=== PATIENT | female | born 1970 | race Caucasian/White ===

== ENCOUNTER 2020-12-17 22:12 | Inpatient (IN) | payer MEDICAID, MEDICARE ==
[~2020-12-17] VITALS: Ht 167.7 cm; Wt 81.8 kg
--- NOTE | 2020-12-17 22:34 | ED Lower Extremity ---
General Chief Complaint: Lower Extremity Stated Complaint: POST L KNEE SURGERY/PAIN/INFECTION Source: patient (VERY DIFFICULT HISTORIAN--APPEARS TO BE UNDER THE INFLUENCE OF SOME SUBSTANCE/S) History of Present Illness Date Seen by Provider: Dec 17, 2020 Time Seen by Provider: 22:20 Initial Comments PT ARRIVES VIA POV FROM HOME, WITH SISTER AMBULATES IN WITH A WHEELED WALKER PT STATES SHE HAD LEFT KNEE REPLACEMENT BY DR. MEDINA AT [facility] ON 12/05/20 AND WAS DISMISSED 12/07/20 HAS NOT ATTEMPTED TO CONTACT HER SURGEON AT ANY TIME STATES "IT'S INFECTED" CLAIMS SHE HAS BEEN HAVING ALL OF THESE SYMPTOMS SINCE THE DAY SHE WAS DISMISSED FROM THE HOSPITAL, AND ARE NO DIFFERENT TONIGHT, STATES "I DIDN'T HAVE A RIDE TO THE HOSPITAL" , BUT HAD NOT ATTEMPTED TO CONTACT ANY FAMILY MEMBERS REGARDING THIS PROBLEM PT LIVES ALONE SISTER THAT IS WITH HER TONIGHT, STATES SHE LAST SAW HER OVER A WEEK AGO, RIGHT AFTER SHE GOT HOME FROM THE HOSPITAL PT IS SUPPOSED TO BE HAVING HOME PHYSICAL THERAPY, BUT CANNOT STATE WHEN OR IF SHE HAS BEEN HAVING IT--STATES SHE HAS IT "EVERY 2 MONTHS" PT C/O DIZZINESS C/O "OOZING BLOOD" FROM INCISION C/O "BLOOD PRESSURE IS WAY LOW"--STATES BP HAS BEEN 70/56 CANNOT STATE ANY OTHER SYMPTOMS AT THIS TIME, BUT STATES THEY HAVE ALL BEEN GOING ON SINCE THE DAY SHE WAS DISMISSED FROM THE HOSPITAL PT IS UNAWARE IF SHE HAS HAD FEVER PT STATES NO CHANGE IN CHRONIC COUGH AND SHORTNESS OF BREATH--CONTINUES TO SMOKE > 1 PPD PT ALSO DRINKS AT LEAST 4 BEERS A DAY, AND CLAIMS THAT IS HOW MUCH SHE HAS HAD TONIGHT PT STATES SHE LAST TOOK PAIN MEDICATION 4 HOURS AGO PT STATES SHE HAS BEEN TAKING HER REGULAR MEDICATION WELL, INCLUDING BLOOD PRESSURE MEDICATION. HOWEVER, PT IS CONFUSED TO TIME, AND DAY OF WEEK/DAY OF MONTH PT IS FULLY VACCINATED AGAINST COVID-19--SECOND MODERNA VACCINE IN MAY 2020 SISTER BROUGHT ALL OF PT'S MEDICATIONS WITH HER--PT HAS A SIGNIFICANT AMOUNT OF EXTRA MEDICATIONS--APPEARS THAT SHE HAS NOT BEEN TAKING ANY OF HER MEDICATIONS, ALL BOTTLES ARE NEARLY FULL AND MANY WERE FILLED MONTHS AGO. PCP: PT STATES "NONE" --WAS GOING TO [facility], BUT STATES SHE "GOT INTO IT" WITH THE LINE FIXER AND PT HAS NOT BEEN BACK PT MOVED HERE LESS THAN A YEAR AGO FROM [facility] SURGEON: DR. MEDINA, ANNA MARIA Allergies and Home Medications Allergies Coded Allergies: No Known Drug Allergies (Unverified , 12/17/20) Patient Home Medication List Home Medication List Reviewed: Yes Review of Systems Constitutional: see HPI Respiratory: see HPI Musculoskeletal: see HPI, other (SWELLING TO LEFT KNEE AND LOWER LEG ) Skin: other (DRAINAGE FROM WOUND) Psychiatric/Neurological: See HPI; Denies Headache, Denies Numbness, Denies Paresthesia Past Cvjmtap-Dewqqw-Urcxur Hx Patient Social History Tobacco Use?: Yes Tobacco type used: Cigarettes Smoking Status: Current Everyday Smoker Substance use?: Yes ("TRIED MARIJUANA" IN PAST) Alcohol Use?: Yes Alcohol type: Beer Alcohol Frequency: Daily Past Medical History Surgery/Hospitalization HX: LEFT KNEE REPLACEMENT 12/05/[address] MEDINA AT [facility] HYSTERECTOMY/BILATERAL SALPINGO-OOPHORECTOMY CERVICAL SPINE SURGERY Surgeries: Yes Hysterectomy, Oophorectomy, Orthopedic Respiratory: Yes COPD Cardiac: Yes Hypertension Neurological: No GENERAL SURGERY PHYSICIAN ASSISTANT History: Hysterectomy, Menopausal Genitourinary: No Gastrointestinal: Yes Gastroesophageal Reflux Musculoskeletal: Yes (CHRONIC NECK PAIN-S/P C-SPINE SURGERY; LEFT TOTAL KNEE REPLACEMENT) Arthritis HEENT: No Psychosocial: No Integumentary: No Blood Disorders: No Family Medical History SOCIAL HISTORY: -SMOKES > 1 PPD -ETOH--"4 BEERS" A DAY -DRUGS--"TRIED MARIJUANA" Physical Exam Vital Signs Vital Signs - First Documented 12/17/20 22:20 Temp 35.8 Pulse 83 Resp 17 B/P (MAP) 80/49 (59) Pulse Ox 98 O2 Delivery Room Air Capillary Refill : Height, Weight, BMI Height: '" Weight: lbs. oz. kg; BMI Method: General Appearance: WD/WN, no apparent distress, other (AMBULATES IN WITH WHEELED WALKER, SPEECH IS SLIGHTLY SLURRED/THICK TONGUED--PT APPEARS TO BE UNDER THE INFLUENCE OF SOME SUBSTANCE/S. PT REEKS OF SMOKE AND ALCOHOL. ) HEENT: PERRL/EOMI Neck: normal inspection Cardiovascular: regular rate, rhythm, no murmur Respiratory: normal breath sounds, no respiratory distress, no accessory muscle use Gastrointestinal: non tender, soft Back: no CVA tenderness Hips: bilateral hip normal inspection Legs: right leg normal inspection; left leg other (HAS SIGNIFICANT SWELLING FROM LEFT KNEE DOWN TO FOOT--3-4+; FOOT/TOES PINK AND WARM. LIMITED ROM AT KNEE; INCISION TO LEFT KNEE IS INTACT, BUT IS OOZING BLOOD FROM DISTAL ASPECT. HAS [place] LD ERYTHEMA SURROUNDING THE INCISION. NO STREAKS. LIMITED ROM AT KNEE, BUT HAS FULL ROM DISTALLY, AND SENSORY/VASCULAR ARE INTACT. ) Knees: right knee normal inspection; left knee other ( ABOVE) Ankles: left ankle other ( ABOVE) Feet: left foot other ( ABOVE) Neurologic/Tendon: normal sensation, normal motor functions Neurologic/Psychiatric: no motor/sensory deficits, alert, other (CONFUSED TO TIME/DATE, AND SOMEWHAT CONFUSED TO SITUATION; DOES NOT KNOW WHO PRESIDENT IS. SPEECH IS SLIGHTLY SLURRED/THICK-TONGUED AND APPEARS TO BE UNDER THE INFLUENCE OF SOME SUBSTANCE/S) Skin: normal color, warm/dry, other (LEFT KNEE INCISION NOTED ABOVE. ) Progress/Results/Core Measures Results/Orders Lab Results Laboratory Tests Test 12/17/20 22:25 12/17/20 22:39 Range/Units White Blood Count 5.5 4.3-11.0 10^3/uL Red Blood Count 2.88 L 3.80-5.11 10^6/uL Hemoglobin 10.6 L 11.5-16.0 g/dL Hematocrit 29 L 35-52 % Mean Corpuscular Volume 100 H 80-99 fL Mean Corpuscular Hemoglobin 37 H 25-34 pg Mean Corpuscular Hemoglobin Concent 37 H 32-36 g/dL Red Cell Distribution Width 12.3 10.0-14.5 % Platelet Count 289 130-400 10^3/uL Mean Platelet Volume 10.0 9.0-12.2 fL Immature Granulocyte % (Auto) 2 % Neutrophils (%) (Auto) 59 42-75 % Lymphocytes (%) (Auto) 27 12-44 % Monocytes (%) (Auto) 11 0-12 % Eosinophils (%) (Auto) 2 0-10 % Basophils (%) (Auto) 1 0-10 % Neutrophils # (Auto) 3.2 1.8-7.8 10^3/uL Lymphocytes # (Auto) 1.5 1.0-4.0 10^3/uL Monocytes # (Auto) 0.6 0.0-1.0 10^3/uL Eosinophils # (Auto) 0.1 0.0-0.3 10^3/uL Basophils # (Auto) 0.0 0.0-0.1 10^3/uL Immature Granulocyte # (Auto) 0.1 0.0-0.1 10^3/uL Erythrocyte Sedimentation Rate 19 0-20 MM/HR Prothrombin Time 12.8 12.2-14.7 SEC INR Comment 0.9 0.8-1.4 Activated Partial Thromboplast Time 27 24-35 SEC Sodium Level 122 *L 135-145 MMOL/L Potassium Level 3.1 L 3.6-5.0 MMOL/L Chloride Level 84 L 98-107 MMOL/L Carbon Dioxide Level 19 L 21-32 MMOL/L Anion Gap 19 H 5-14 MMOL/L Blood Urea Nitrogen 12 7-18 MG/DL Creatinine 0.75 0.60-1.30 MG/DL Estimat Glomerular Filtration Rate 82 BUN/Creatinine Ratio 16 Glucose Level 70 70-105 MG/DL Lactic Acid Level 1.29 0.50-2.00 MMOL/L Calcium Level 8.4 L 8.5-10.1 MG/DL Corrected Calcium 8.9 8.5-10.1 MG/DL Magnesium Level 1.8 1.6-2.4 MG/DL Total Bilirubin 0.8 0.1-1.0 MG/DL Aspartate Amino Transf (AST/SGOT) 50 H 5-34 U/L Alanine Aminotransferase (ALT/SGPT) 20 0-55 U/L Alkaline Phosphatase 116 40-136 U/L Total Creatine Kinase 82 29-168 U/L Creatine Kinase MB 8.4 *H <6.6 NG/ML Myoglobin 126.2 H 10.0-92.0 NG/ML C-Reactive Protein High Sensitivity 0.60 H 0.00-0.50 MG/DL Total Protein 6.2 L 6.4-8.2 GM/DL Albumin 3.4 3.2-4.5 GM/DL Amylase Level 27 25-125 U/L Lipase 18 8-78 U/L Procalcitonin 0.11 H <0.10 NG/ML Acetaminophen Level < 10 L 10-30 UG/ML Serum Alcohol 364 *H <10 MG/DL Urine Color YELLOW Urine Clarity CLEAR Urine pH 6.0 5-9 Urine Specific Prather 1.010 L 1.016-1.022 Urine Protein NEGATIVE NEGATIVE Urine Glucose (UA) NEGATIVE NEGATIVE Urine Ketones NEGATIVE NEGATIVE Urine Nitrite NEGATIVE NEGATIVE Urine Bilirubin NEGATIVE NEGATIVE Urine Urobilinogen 0.2 < = 1.0 MG/DL Urine Leukocyte Esterase NEGATIVE NEGATIVE Urine RBC (Auto) NEGATIVE NEGATIVE Urine RBC NONE /HPF Urine WBC RARE /HPF Urine Squamous Epithelial Cells 0-2 /HPF Urine Crystals NONE /LPF Urine Bacteria TRACE /HPF Urine Casts NONE /LPF Urine Mucus NEGATIVE /LPF Urine Culture Indicated CULTURE PENDING SARS-CoV-2 RNA (RT-PCR) Not Detected Not Detecte My Orders Orders - RICARDO TRAN DO Ed Iv/Invasive Line Start (12/17/20 22:29) Monitor-Rhythm Ecg Trace Only (12/17/20:) Straight Cath For Spec.-Adult (12/17/20:) Chest 1 View, Ap/Pa Only (12/17/20:) Knee, Left, 3 Views (12/17/20:29) Acetaminophen (12/17/20:) Alcohol (12/17/20:) Amylase (12/17/20:29) Cbc With Automated Diff (12/17/20:) Comprehensive Metabolic Panel (12/17/20:) Creatine Kinase (12/17/20:) Creatine Kinase Mb (12/17/20:) Hs C Reactive Protein (12/17/20:) Lactic Acid Analyzer (12/17/20 22:29) Lipase (12/17/20:) Magnesium (12/17/20:) Procalcitonin (Pct) (12/17/20:) Protime With Inr (12/17/20:) Partial Thromboplastin Time (12/17/20 22:29) Ua Culture If Indicated (12/17/20:) Blood Culture (12/17/20:29) Wound Culture (12/17/20:) Erythrocyte Sedimentation Rate (12/17/20 22:29) Myoglobin Serum (12/17/20 22:29) Ed Iv/Invasive Line Start (12/17/20 22:34) Lactated Ringers (Lr 1000 Ml Iv Solution (12/17/20 22:45) Ns Iv 1000 Ml (Sodium Chloride 0.9%) (12/17/20 22:45) Covid 19 Inhouse Test (12/17/20 22:34) Urine Culture (12/17/20 22:34) Ed Iv/Invasive Line Start (12/17/20 22:34) Vital Signs Adult Sepsis Patie Q15M (12/17/20 22:34) Remove Rings In Anticipation O (12/17/20 22:34) Catheter(Urinary) Insert & Ass 03,15 (12/17/20 22:38) Catheter(Urinary) Insert & Ass 03,15 (12/17/20 23:02) Ekg Tracing (12/17/20 23:06) Piperacillin Sodium/Tazobactam (Zosyn Vi (12/17/20 23:15) Vancomycin Injection (Vancomycin Injecti (12/17/20 23:15) Ed Iv/Invasive Line Start (12/17/20 23:15) Ns Iv 1000 Ml (Sodium Chloride 0.9%) (12/17/20 23:15) Norepinephrine 8 Mg/250 Ml (Norepinephri (12/18/20 00:30) Medications Given in ED Current Medications Medications Dose Ordered Sig/Merari Route Start Time Stop Time Status Last Admin Dose Admin Lactated Ringer's 1,000 ml @ 0 mls/hr Q0M ONCE IV 12/17/20 22:45 12/17/20 22:46 DC 12/17/20 22:43 0 MLS/HR Piperacillin Sod/ Tazobactam Sod 4.5 gm/Sodium Chloride 100 ml @ 200 mls/hr ONCE ONCE IV 12/17/20 23:15 12/17/20 23:44 DC 12/17/20 23:59 200 MLS/HR Vital Signs/I&O 12/17/20 12/18/20 22:20 00:50 Temp 35.8 Pulse 83 85 Resp 17 B/P (MAP) 80/49 (59) 72/49 Pulse Ox 98 O2 Delivery Room Air 12/18/20 00:00 Intake Total 1000 ml Balance 1000 ml Progress Progress Note : Progress Note SEPSIS PROTOCOL INITIATED GIVEN IV FLUIDS--PT STILL HYPOTENSIVE IN 70'S SYSTOLIC, AFTER 3RD LITER OF FLUIDS. LEVOPHED DRIP STARTED, AND BP >100 SYSTOLIC AT TIME OF ADMIT GIVEN IV ANTIBIOTICS NO DETERIORATION IN PT'S CONDITION DURING ER STAY FOCUS EXAM DONE AT 0005--DX; SEPTIC SHOCK; SOURCE; BONE/JOINT-POST SURGICAL; H-RRR L-CTA SKIN--GOOD CAP REFILL GIVEN IV FLUIDS GIVEN IV ANTIBIOTICS LACTIC ACID DRAWN BLOOD CULTURES DRAWN VASOPRESSORS GIVEN Initial ECG Impression Date: Dec 17, 2020 Initial ECG Impression Time: 23:10 Initial ECG Rate: 72 Initial ECG Rhythm: Normal Sinus Initial ECG Impression: Nonspecific Changes Diagnostic Imaging Comments CXR--NO ACUTE PROCESS, PENDING RADIOLOGIST REVIEW LEFT KNEE--SOFT TISSUE SWELLING, HARDWARE IN PLACE, PENDING RADIOLOGIST REVIEW Reviewed: Reviewed by Me Critical Care Note Critical Care Total Time (minutes) 30 Departure Communication (Admissions) 2242--CALLED [facility], NO ANSWER 9--CALLED [facility], AT FULL CAPACITY/ON DIVERSION. 231--SPOKE WITH DR. FREGOSO, HOSPITALIST, SHE ADVISES TO CONTACT ORTHOPEDIC SURGEON FLIGHT OPERATIONS INSPECTOR, AND IF HE IS AGREEABLE WITH KEEPING PT HERE, SHE WILL ADMIT. 231--CALLED DR. GAMINO, MESSAGE LEFT ON CELL PHONE. [phone]--CALLED DR. GAMINO, MESSAGE LEFT ON CELL PHONE [phone]--CALLED DR. GAMINO, MESSAGE LEFT ON CELL PHONE 0012--SPOKE WITH DR. FREGOSO, SHE ADVISES THAT PT WILL NEED TO BE TRANSFERRED IF ORTHOPEDIC SURGEON IS NOT AGREEABLE TO ADMIT. 0017--MULTIPLE SLIDE OPERATOR ATTEMPTING TO CONTACT DR. GAMINO, MESSAGE LEFT ON CELL PHONE [phone]--CALLED [facility], THEY WILL CALL BACK 0030--[facility] CALLED BACK, WANTING FACE SHEET FAXED, WHICH WAS DONE. 010--SPOKE WITH DR. WILL, INSTRUMENT MAINTENANCE SUPERVISOR, ADVISES THAT HE WILL NOT ACCEPT PT WITHOUT CENTRAL LINE 010--CALLED DR. GRIGGS FOR CENTRAL LINE PLACEMENT. HE ADVISES TO ATTEMPT TO CONTACT DR. GAMINO AGAIN, AND Serge VARGHESE 0114--SPOKE WITH CHELLE VARGHESE, HE ADVISES TO ATTEMPT TO CONTACT DR. GAMINO AGAIN 011--CALLED DR. GAMINO, AND HE IS AGREEABLE TO KEEPING PT HERE, ADMITTING TO HOSPITALIST AND HE WILL SEE PT IN CONSULT. 0125--SPOKE WITH DR. FREGOSO, AND INFORMED HER OF THE ABOVE, AND SHE ACCEPTS PT FOR ADMIT 0126--REPORT TO E-ICU PHYSICIAN. NO ADDITIONAL RECOMMENDATIONS 012--SPOKE WITH DR. GRIGGS, HE WILL PLACE CENTRAL LINE IN THE MORNING, PT HAS 3 PERIPHERAL IV'S AT THIS TIME. Impression Primary Impression: Septic shock Additional Impressions: POST OP WOUND INFECTION OF LEFT KNEE Status post left knee replacement COPD WITH CONTINUED SMOKING ACUTE ALCOHOL INTOXICATION IN ACTIVE ALCOHOLIC SEVERE HYPONATREMIA Disposition: ADMITTED INPATIENT Condition: Improved Admissions Decision to Admit Reason: Admit from ER (General) Decision to Admit/Date: Dec 18, 2020 Time/Decision to Admit Time: 01:25 Departure-Patient Inst. Referrals: NO,LOCAL PHYSICIAN (PCP/Family) Primary Care Physician RICARDO TRAN DO Dec 17, 2020 22:34
[2020-12-17 22:39] LABS: BASOPHILS % (AUTO) 1 % (0-10); EOSINOPHILS # (AUTO) 0.1 10^3/uL (0.0-0.3); EOSINOPHILS % (AUTO) 2 % (0-10); HEMATOCRIT 29 % (35-52); HEMOGLOBIN 10.6 g/dL (11.5-16.0); LYMPHOCYTES # (AUTO) 1.5 10^3/uL (1.0-4.0); LYMPHOCYTES % (AUTO) 27 % (12-44); MEAN CORPUSCULAR HEMOGLOBIN 37 pg (25-34); MEAN CORPUSCULAR HGB CONC 37 g/dL (32-36); MEAN CORPUSCULAR VOLUME 100 fL (80-99); MONOCYTES # (AUTO) 0.6 10^3/uL (0.0-1.0); MONOCYTES % (AUTO) 11 % (0-12); NEUTROPHILS # (AUTO) 3.2 10^3/uL (1.8-7.8); NEUTROPHILS % (AUTO) 59 % (42-75); PLATELET COUNT 289 10^3/uL (130-400); WHITE BLOOD COUNT 5.5 10^3/uL (4.3-11.0)
[2020-12-17] MEDS ORDERED: LACTATED RINGERS 1,000 ML IV ONE (22:45)
[2020-12-17] MEDS ORDERED: NS IV 1000 ML 1,000 ML IV SCH ×2 (22:45→23:15)
[2020-12-17 22:48] LABS: CHLORIDE 84 MMOL/L (98-107); POTASSIUM 3.1 MMOL/L (3.6-5.0)
[2020-12-17 22:49] LABS: ALBUMIN 3.4 GM/DL (3.2-4.5)
[2020-12-17 22:50] LABS: AMYLASE 27 U/L (25-125); CALCIUM 8.4 MG/DL (8.5-10.1)
[2020-12-17 22:51] LABS: GLUCOSE 70 MG/DL (70-105); TOTAL PROTEIN 6.2 GM/DL (6.4-8.2)
[2020-12-17 22:52] LABS: CARBON DIOXIDE 19 MMOL/L (21-32); INR 0.9 (0.8-1.4); PROTHROMBIN TIME PATIENT 12.8 SEC (12.2-14.7)
[2020-12-17 22:53] LABS: BILIRUBIN,TOTAL 0.8 MG/DL (0.1-1.0)
[2020-12-17 22:55] LABS: ALKALINE PHOSPHATASE 116 U/L (40-136); CREATININE SERUM 0.75 MG/DL (0.60-1.30); GFR ESTIMATED 82
[2020-12-17 22:56] LABS: ACETAMINOPHEN < 10 UG/ML (10-30); BUN/CREATININE RATIO 16
[2020-12-17 22:57] LABS: MAGNESIUM 1.8 MG/DL (1.6-2.4)
[2020-12-17 22:58] LABS: ALANINE AMINOTRANSFERASE 20 U/L (0-55)
[2020-12-17 22:58] LABS: BILIRUBIN,URINE NEGATIVE (NEGATIVE); CLARITY,URINE CLEAR; COLOR,URINE YELLOW; GLUCOSE, URINE (UA) NEGATIVE (NEGATIVE); KETONES,URINE NEGATIVE (NEGATIVE); LEUKOCYTE ESTERASE ,URINE NEGATIVE (NEGATIVE); NITRITE,URINE NEGATIVE (NEGATIVE); PROTEIN,URINE NEGATIVE (NEGATIVE)
[2020-12-17 22:59] LABS: CREATINE KINASE 82 U/L (29-168); LIPASE 18 U/L (8-78)
[2020-12-17 23:00] LABS: SODIUM 122 MMOL/L (135-145)
[2020-12-17 23:01] LABS: ERYTHROCYTE SEDIMENTATION RATE 19 MM/HR (0-20)
[2020-12-17 23:09] LABS: BACTERIA,URINE TRACE /HPF; SQUAMOUS EPITHELIAL CELL,UR 0-2 /HPF; WBC,URINE RARE /HPF
[2020-12-17 23:14] LABS: CREATINE KINASE MB 8.4 NG/ML (<6.6)
[2020-12-17] MEDS ORDERED: PIPERACILLIN SODIUM/TAZOBACTAM 4.5 GM in NS (IVPB) 100 ML IV ONE (23:15)
--- NOTE | 2020-12-17 23:28 | Diagnostic Imaging Report ---
EXAMINATION: Portable supine chest at 1057 PM INDICATION: Knee infection There are no prior studies available for comparison. This exam is less than optimal as the patient is rotated. The heart size is within normal limits. The perihilar markings are prominent bilaterally. I suspect these findings are chronic in nature as opposed to pulmonary edema. If previous studies are available, they would be helpful for comparison. The lungs are generally clear. There is no evidence for pneumonia or for pleural effusion. The mediastinum is not widened. The osseous structures show no sign of an acute abnormality. There are healed slightly displaced fractures of the right 6th, 7th, and 8th ribs. There is also an orthopedic plate and screw fixation device overlying the lower cervical spine. IMPRESSION: 1. The prominent perihilar markings may well be long-standing in nature. If previous studies are available, they would be helpful for comparison. 2. There is no acute cardiopulmonary abnormality noted otherwise. Dictated by: Dictated on workstation # [id number]
[2020-12-17] MEDS: VANCOMYCIN INJECTION 750 MG in NS (IVPB) 250 ML IV SCH (23:29)
--- NOTE | 2020-12-17 23:30 | Diagnostic Imaging Report ---
EXAMINATION: Left knee at 1059 PM INDICATION: Knee infection 3 views were obtained. There are no prior studies available for comparison. There is no fracture, dislocation or acute bony abnormality evident. There is a total knee prosthesis in place. The prosthetic components seem to be in good position. However, there is considerable soft tissue edema along the anteromedial aspect of the knee joint. There also appears to be joint effusion present. IMPRESSION: 1. There is no evidence for an acute bony abnormality and the total knee prosthesis seems to be in good position. 2. There is considerable edema/inflammation of the soft tissues along the anteromedial aspect of the knee joint. A joint effusion is also suspected. Dictated by: Dictated on workstation # [id number]
[2020-12-18] MEDS ORDERED: NOREPINEPHRINE 8 MG/250 ML 250 ML IV SCH ×2 (00:30→02:45)
[2020-12-18] MEDS: VANCOMYCIN INJECTION 750 MG in NS (IVPB) 250 ML IV SCH (00:55)
--- NOTE | 2020-12-18 02:31 | Tele-ICU Consult ---
History of Present Illness History of Present Illness Date Seen by Provider: Dec 18, 2020 Time Seen by Provider: 02:26 Date of Admission 50 y old lady with recent hx of knee replacement on 12/05, released on 12/07. Pt states that he has discharge from the suture/ " feels that the wound is infected). Pt was also hypotensive at home: in ED was found to be hypotensive. Sepsis work up has been initiated: 3l fluid challenge/ lactic acid<2/ empiric abx zosyn+vanco. Levophed was started. Pt has high ETOH level and hyponatremia. Allergies and Home Medications Allergies Coded Allergies: No Known Drug Allergies (Unverified , 12/17/20) Past Medical/Social/Family Hx Patient Social History Tobacco Use?: Yes Tobacco type used: Cigarettes Smoking Status: Current Everyday Smoker Use of E-Cig and/or Vaping dev: No Substance use?: Yes ("TRIED MARIJUANA" IN PAST) Alcohol Use?: Yes Alcohol type: Beer Alcohol Frequency: Daily Pt stated abuse/neglect: No Immunizations Up To Date Influenza Vaccine Up-to-Date: No; Not Current First/Initial COVID19 Vaccinat: APR 2020 Second COVID19 Vaccination Jose: MAY 2020 Hepatitis A: No Hepatitis B: No TB Skin Test: None Current Status status: No status: No Communicates: Verbally Primary Language: Spanish Preferred Spoken Language: Spanish Is interpretation needed?: No Past Medical History COPD Family Medical History Family Hx: SOCIAL HISTORY: -SMOKES > 1 PPD -ETOH--"4 BEERS" A DAY -DRUGS--"TRIED MARIJUANA" Review of Systems Constitutional: see HPI Sepsis Event Evaluation Sepsis Stage: Septic Shock Possible Source: Bone/Joint Height, Weight, BMI Height: '" Weight: lbs. oz. kg; 27.00 BMI Method: Bedside Monitoring Passive Leg Raise/Fluid Bolus: Not Fluid Responsive Exam Exam Patient acknowledged, consented, and participated in this virtual visit which was conducted using real time audio/video Vital Signs Date Time Temp Pulse Resp B/P (MAP) Pulse Ox O2 Delivery O2 Flow Rate FiO2 12/18/20 00:50 85 72/49 12/17/20 22:20 35.8 83 17 80/49 (59) 98 Room Air I & O 12/18/20 07:00 Intake Total 3600 ml Balance 3600 ml Height & Weight Height: '" Weight: lbs. oz. kg; 27.00 BMI Method: General Appearance: No Apparent Distress Capillary Refill: Less Than 3 Seconds Gastrointestinal: non tender, soft Results Lab Laboratory Tests 12/17/20 22:25 Assessment/Plan Assessment/Plan A/P 1. Septic shock -source: prosthetic joint- will need ortho eval/ CT joint will be needed -iv fluids/ levophed -continue vanco and zosyn 2. ETOH intoxication: watch for withdrawal/ thiamine, folic acid, mvi -CIWA protocol 3. Hyponatremia workup will include serum urine osm, urine Na -repeat electrolytes upon arrival in icu 4. DVT prophylaxis labs/ dg, notes reviewed dw ED physician dw bed side rn/ patient was visualized JANAY NICOLAS MD Dec 18, 2020 02:31
[2020-12-18] MEDS ORDERED: ONDANSETRON 4 MG/2 ML (SDV) Z0FRAN IV PRN (02:45)
[2020-12-18] MEDS ORDERED: LORazepam 1 MG (ATIVAN) TAB PO PRN ×2 (02:45)
[2020-12-18] MEDS ORDERED: 1/2 NS IV SOLUTION 1,000 ML IV PRN ×2 (02:45)
[2020-12-18] MEDS ORDERED: D5 1/2 NS 1000 ML IV SOLUTION 1,000 ML IV PRN ×2 (02:45)
[2020-12-18] MEDS ORDERED: fentaNYL INJ 100 MCG/2 ML AMP IVP PRN (02:45)
[2020-12-18] MEDS ORDERED: ACETAMINOPHEN 500 MG TAB (TYLENOL) PO PRN (02:45)
[2020-12-18] MEDS ORDERED: LORazepam INJ 2 MG/ML (ATIVAN) VIAL IM/IV PRN ×2 (02:45)
[2020-12-18] MEDS ORDERED: ANTACID SUSP 30 ML UDC (MYLANTA) PO PRN ×2 (02:45)
[2020-12-18] MEDS ORDERED: ONDANSETRON 4 MG/2 ML (SDV) Z0FRAN IVP PRN (02:45)
[2020-12-18] MEDS ORDERED: SENNA W/DOCUSATE (SENOKOT S) TABLET PO PRN ×2 (02:45)
[2020-12-18] MEDS ORDERED: LORazepam INJ 2 MG/ML (ATIVAN) VIAL IV PRN ×2 (02:45)
[2020-12-18] MEDS ORDERED: ONDANSETRON 4 MG (ZOFRAN) ORAL DISSOLVE TAB SL PRN ×2 (02:45)
[2020-12-18] MEDS: D5 LR IV SOLUTION 1,000 ML IV SCH ×3 (03:48→15:36)
[2020-12-18] MEDS: LACTATED RINGERS 1,000 ML IV SCH ×3 (04:00→13:48)
[2020-12-18 05:30] LABS: BASOPHILS % (AUTO) 1 % (0-10); EOSINOPHILS # (AUTO) 0.1 10^3/uL (0.0-0.3); EOSINOPHILS % (AUTO) 2 % (0-10); HEMATOCRIT 27 % (35-52); HEMOGLOBIN 9.8 g/dL (11.5-16.0); LYMPHOCYTES % (AUTO) 22 % (12-44); MEAN CORPUSCULAR HEMOGLOBIN 36 pg (25-34); MEAN CORPUSCULAR HGB CONC 36 g/dL (32-36); MEAN CORPUSCULAR VOLUME 101 fL (80-99); MEAN PLATELET VOLUME 10.2 fL (9.0-12.2); MONOCYTES # (AUTO) 0.6 10^3/uL (0.0-1.0); MONOCYTES % (AUTO) 13 % (0-12); NEUTROPHILS # (AUTO) 2.5 10^3/uL (1.8-7.8); NEUTROPHILS % (AUTO) 58 % (42-75); PLATELET COUNT 276 10^3/uL (130-400); WHITE BLOOD COUNT 4.3 10^3/uL (4.3-11.0)
[2020-12-18 05:40] LABS: POTASSIUM 2.8 MMOL/L (3.6-5.0)
[2020-12-18 05:41] LABS: CALCIUM 7.9 MG/DL (8.5-10.1)
[2020-12-18 05:42] LABS: TOTAL PROTEIN 5.5 GM/DL (6.4-8.2)
[2020-12-18 05:43] LABS: INR 0.9 (0.8-1.4); PROTHROMBIN TIME PATIENT 12.9 SEC (12.2-14.7)
[2020-12-18 05:44] LABS: BILIRUBIN,TOTAL 0.8 MG/DL (0.1-1.0)
[2020-12-18 05:45] LABS: PHOSPHORUS 3.8 MG/DL (2.3-4.7)
[2020-12-18 05:46] LABS: CREATININE SERUM 0.58 MG/DL (0.60-1.30)
[2020-12-18 05:49] LABS: MAGNESIUM 1.7 MG/DL (1.6-2.4)
[2020-12-18] MEDS ORDERED: IOHEXOL 350 MG/ML 100 ML (OMNIPAQUE 350) VIAL IV ONE (06:30)
[2020-12-18] MEDS ORDERED: NS 100 ML (IVPB) BAG IV ONE (06:30)
[2020-12-18] MEDS ORDERED: HOLD METFORMIN - RECEIVED CONTRAST 20 ML VIAL IV SCH (06:30)
[2020-12-18] MEDS: PIPERACILLIN/TAZO 4.5 GM/NS 100 ML IV SCH ×4 (06:30→13:48)
[2020-12-18 06:33] LABS: BAND NEUTROPHILS 2 %; LYMPHOCYTES % (MANUAL) 30 %; NEUTROPHILS % (MANUAL) 57 %
[2020-12-18 06:34] LABS: EOSINOPHILS % (MANUAL) 2 %; MONOCYTES % (MANUAL) 9 %
[2020-12-18] MEDS: MULTIVIT W/MINERALS TAB (THERAGRAN M) PO SCH (06:38)
[2020-12-18] MEDS: THIAMINE 100 MG (VITAMIN B-1) TAB PO SCH (06:38)
[2020-12-18] MEDS ORDERED: POTASSIUM CL 10MEQ/50ML IVPB 50 ML IV ONE ×2 (06:45→11:45)
--- NOTE | 2020-12-18 07:08 | Diagnostic Imaging Report ---
PROCEDURE: CT left lower extremity with and without contrast. TECHNIQUE: Multiple axial images were obtained through the left lower extremity with and without intravenous contrast. Auto Exposure Controls were utilized during the CT exam to meet ALARA standards for radiation dose reduction. INDICATION: Septic joint COMPARISON: 12/17/2020 FINDINGS: A left total knee arthroplasty is in place. Artifact from the arthroplasty severely limits evaluation of the adjacent structures. There is no evidence of hardware complication within the limits of the exam. No acute fracture or dislocation. No definite osseous destruction. A small knee joint effusion is present. Additionally, free fluid with potential small focal fluid collection is noted within the prepatellar and infrapatellar subcutaneous tissues. Overlying defect within the skin surface seen. No definite soft tissue gas. No suspicious radiopaque foreign body. Mild fat stranding and edema throughout the subcutaneous tissues. Mild degenerative changes involving the tibiofibular joint. IMPRESSION: Left total knee arthroplasty without hardware complication or acute fracture. Small knee joint effusion. Superimposed infection not excluded. Small amount of fluid with potential small focal fluid collection within the prepatellar and infrapatellar subcutaneous tissues with associated soft tissue swelling. Although this may simply relate to edema, bursitis or tiny abscess would be additional considerations. Dictated by: Dictated on workstation # [id number]
[2020-12-18] MEDS: MAGNESIUM 1 GM/100 ML IVPB 100 ML IV SCH ×2 (07:27→08:01)
[2020-12-18] MEDS ORDERED: FLU QUADRIvalent (3YOA+) 60 mcg/0.5 ml 2021-22(AFLURIA) IM ONE (07:30)
[2020-12-18] MEDS ORDERED: VANCOMYCIN 1 GM/NS 250 ML IVPB IV SCH ×2 (08:00)
[2020-12-18] MEDS: FOLIC ACID 1 MG TAB PO SCH (08:01)
[2020-12-18] MEDS: MAGNESIUM OXIDE (MAG-OX)400 MG TAB PO SCH ×2 (08:01→20:21)
[2020-12-18] MEDS: POTASSIUM CL 10MEQ/50ML IVPB 50 ML IV SCH ×4 (08:01→11:26)
[2020-12-18] MEDS: ENOXAPARIN 40 MG/0.4 ML (LOVENOX) SYR SC SCH (08:02)
[2020-12-18] MEDS ORDERED: THIAMINE INJECTION 100 MG, FOLIC ACID INJECTION 1 MG, MAGNESIUM SULFATE 2 GM, VITAMIN M... IV SCH ×5 (09:00)
--- NOTE | 2020-12-18 09:00 | Tele-ICU Progress Note ---
Subjective Date Seen by a Provider: Dec 18, 2020 Time Seen by a Provider: 13:35 Subjective/Events-last exam 50 yo F with total knee replacement, thought to have septic joint, with drop in BP, On 2 lpm nasal cannula, BP better, was seen by ortho did not think it was a septic joint,now off IV levophed CXR shows chronic changes in RLL, otherwise looks ok except for hyperinflaion Started on IV Vanco, Zosyn Sepsis Event Evaluation Height, Weight, BMI Height: '" Weight: lbs. oz. kg; 29.08 BMI Method: Focused Exam Lactate Level 12/17/20 22:25: Lactic Acid Level 1.29 Exam Exam Patient acknowledged, consented, and participated in this virtual visit which was conducted using real time audio/video Vital Signs Date Time Temp Pulse Resp B/P (MAP) Pulse Ox O2 Delivery O2 Flow Rate FiO2 12/18/20 08:30 Nasal Cannula 2.00 12/18/20 08:00 94 17 101/60 94 Room Air 12/18/20 07:56 94 Room Air 12/18/20 07:52 Room Air 12/18/20 07:45 36.5 12/18/20 07:00 92 12/18/20 07:00 90 12 112/66 95 Nasal Cannula 2.00 12/18/20 06:00 92 33 130/72 98 Nasal Cannula 2.00 12/18/20 05:00 95 15 121/72 100 Nasal Cannula 2.00 12/18/20 04:30 95 16 112/73 97 Nasal Cannula 2.00 12/18/20 04:15 92 19 127/80 99 Nasal Cannula 2.00 12/18/20 04:00 91 11 127/86 100 Nasal Cannula 2.00 12/18/20 03:45 87 19 124/86 99 Nasal Cannula 2.00 12/18/20 03:30 81 120/74 100 Nasal Cannula 2.00 12/18/20 03:15 80 10 108/69 100 Nasal Cannula 2.00 12/18/20 03:00 36.1 85 12 101/54 100 Nasal Cannula 2.00 12/18/20 03:00 Nasal Cannula 2.00 12/18/20 02:56 82 12/18/20 02:30 36.7 79 17 102/67 98 Room Air 12/18/20 00:50 85 72/49 12/17/20 22:20 35.8 83 17 80/49 (59) 98 Room Air I & O 12/18/20 07:00 Intake Total 3625 ml Output Total 4050 ml Balance -425 ml Height & Weight Height: '" Weight: lbs. oz. kg; 29.08 BMI Method: General Appearance: No Apparent Distress Respiratory: Lungs Clear Cardiovascular: Regular Rate, Rhythm Capillary Refill: Less Than 3 Seconds Gastrointestinal: non tender, soft Extremity: Other (left knee a little warm with swelling, no drainage, pain /10) Results Lab Laboratory Tests 12/17/20 22:25 12/18/20 05:15 Assessment/Plan Assessment/Plan Possible septic joint, will continue IV IV vacno, Zosyn, need ortho consult, should have tap if fluid-coagulation is ok If stays off pressors, can go out Critical Care: Critically Ill Patient Time spent with patient (mins): MARAGRITO SMITH MD Dec 18, 2020 09:00
[2020-12-18] MEDS ORDERED: MONT10TA32 PO (10:47)
[2020-12-18] MEDS ORDERED: HYDR-3817 PO (10:47)
[2020-12-18] MEDS ORDERED: NF-NACL1GT PO (10:47)
[2020-12-18] MEDS ORDERED: AMLO-250 PO (10:47)
[2020-12-18] MEDS ORDERED: ASPI-1238 PO (10:47)
[2020-12-18] MEDS ORDERED: PROP60CA PO (10:47)
[2020-12-18] MEDS ORDERED: ACET325T49 PO (10:47)
[2020-12-18] MEDS ORDERED: PANT20TA18 PO (10:47)
[2020-12-18] MEDS ORDERED: DULO30CA49 PO (10:47)
--- NOTE | 2020-12-18 11:48 | Occupational Therapy Eval ---
OT Evaluation-General/PLF Medical Diagnosis Admission Date Dec 18, 2020 at 01:25 Medical Diagnosis: septic shock, s/p L TKA, ETOH Onset Date: Dec 17, 2020 Therapy Diagnosis Therapy Diagnosis: decreased ADL status, weakness Precautions Precautions/Isolations: Fall Prevention, Standard Precautions Referral Physician: Jakub Referral Reason: Evaluation/Treatment Medical History Pertinent Medical History: Arthritis, COPD, HTN, Smoking Additional Medical History ETOH (4 beers a day) Current History s/p L TKA 12/05 at [facility], released 12/07. Pt felt like her wound was infected, found hypotensive at home and ED Social History Home: Single Level Current Living Status: Alone Entry Into Home: Stairs Without Railing Steps Into Home: 2 Steps Inside Home: 2 2 steps into house, 2 steps down to laundry room. ADL-Prior Level of Function SCALE: Activities may be completed with or without assistive devices. 9-Hpecgnsvby-pvvmkql completes the activity by him/herself with no assistance from a helper. 5-Set-up or Clean-up Assistance-helper sets up or cleans up; patient completes activity. [place] assists only prior to or following the activity. 4-Supervision or Touching Assistance-helper provides verbal cues and/or touching/steadying and/or contact guard assistance as patient completes activity. Assistance may be provided throughout the activity or intermittently. 3-Partial/Moderate Assistance-helper does LESS THAN HALF the effort. [place] lifts, holds or supports trunk or limbs, but provides less than half the effort. 2-Substantial/Maximal Assistance-helper does MORE THAN HALF the effort. [place] lifts or holds trunk or limbs and provides more than half the effort. 9-Lodhydmnn-wvesqq does ALL the effort. Patient does none of the effort to complete the activity. Or, the assistance of 2 or more helpers is required for the patient to complete the activity. If activity was not attempted, code reason: 7-Patient Refused. 9-Not Applicable-not attempted and the patient did not perform the activity before the current illness, exacerbation or injury. 10-Not Attempted due to Environmental Limitations-(lack of equipment, weather restraints, etc.). 88-Not Attempted due to Medical Conditions or Safety Concerns. ADL PLOF Comments Pt reports IND with ADLs and functional mobility at [facility], uses FWW/4WW (owns both). She has a tub/shower, but indicates she has been able to get in/out of her tub since her surgery, she does not have a SC but indicates her neighbor does and she may borrow it. Self Care: Independent Functional Cognition: Independent DME/Equipment: Tub/Shower DME/Equipment Comments 4WW, FWW OT Current Status Subjective Pt in bed, agreeable to OT Tx. Pt reports she would like some pain medicine, does not verbalize pain rating. Mental Status/Objective Patient Orientation: Person, Place, Situation Attachments: [place] Catheter, IV Current Upper Extremity ROM WFL Upper Extremity Strength grossly 4/5 BUEs ADL-Treatment Eating (QC): 6 (IND with drink.) On/Off Footwear (QC): 1 (total assist to don/doff bilateral gripper socks.) Other Treatments Pt laying in bed, OT educated pt on purpose and benefit of OT, she verbalized understanding. Pt provided information about PLOF and home set up, and participated in UE screen. Pt transferred supine to sit EOB, SBA. At EOB, pt attempted to doff her socks, attempted to use figure 4 method to cross L leg over her right, increased pain with movement so pt dropped her leg to the ground and hollered "fuck", and leaned towards the L side of her bed. Pt assisted upright then attempted to doff R sock, again losing her balance, this time leaning towards her R side. OT assisted pt with doffing bilateral socks, then assist to don gripper socks. Pt stood from EOB, Min A, standing ~30 seconds before requesting to sit. Pt transferred supine, able to bring both LEs into bed, assist with scooting L leg over in bed. Post tx, pt in bed, call light in reach and all needs met. Education OT Patient Education: Correct positioning, Modified ADL techniques, Progress toward Goal/Update tx plan, Purpose of tx/functional activities Teaching Recipient: Patient Teaching Methods: Discussion Response to Teaching: Verbalize Understanding OT Skilled Nursing Goals Insurance Administrator Goals Time Frame: Dec 29, 2020 Eating (QC): 6 Oral Hygiene (QC): 6 Toileting Hygiene (QC): 6 Shower/Bathe Self (QC): 4 Upper Body Dressing (QC): 5 Lower Body Dressing (QC): 4 On/Off Footwear (QC): 4 Additional Goals: 1-Demonstrate ADL Tasks, 2-Verbalize Understanding, 3- ImproveStrength/Tamiko 1=Demonstrate adherence to instructed precautions during ADL tasks. 2=Patient will verbalize/demonstrate understanding of assistive devic es/modifications for ADL. 3=Patient will improve strength/tolerance for activity to enable patient to perform ADL's. OT Education/Plan Problem List/Assessment Assessment: Decreased Activ Tolerance, Decreased UE Strength, Impaired Funct Balance, Impaired I ADL's, Impaired Self-Care Skills Discharge Recommendations Plan/Recommendations: Continue POC Treatment Plan/Plan of Care Patient would benefit from OT for education, treatment and training to promote independence in ADL's, mobility, safety and/or upper extremity function for ADL's. Plan of Care: ADL Retraining, Functional Mobility, UE Funct Exercise/Act Treatment Duration: Dec 29, 2020 Frequency: 5 times per week Estimated Hrs Per Day: .25 hour per day Time/GCodes Start Time: 11:01 Stop Time: 11:17 Total Time Billed (hr/min): 16 Billed Treatment Time 1, DONELL KENT OT Dec 18, 2020 11:48
--- NOTE | 2020-12-18 12:37 | CONSULTATION REPORT ---
DATE OF SERVICE: 12/18/2020 INPATIENT CONSULTATION REASON FOR CONSULTATION: Suspected left knee sepsis. HISTORY OF PRESENT ILLNESS: The patient is a 50-year-old female who underwent left total knee arthroplasty by Dr. Arana just under 2 weeks ago. She presented to the Emergency Department late last evening with hypotension. There was concern for sepsis. PHYSICAL EXAMINATION: Today, her knee is very benign. There is some mild erythema on the superior aspect of her incision. No drainage is expressed. There is what appears to be a slight hematoma in the subcutaneous tissues. Range of motion today actively is 0/0/70. There is no gross effusion, no warmth. She has no calf tenderness. Negative Homans sign. Her white count is normal. She has no left shift. She has a normal sed rate. She is not febrile and has not been febrile and there is no tachycardia. IMPRESSION: Perhaps some mild cellulitis, but this is not typical presentation for a septic knee. The patient appears to be medically stable. I would recommend followup with Dr. Arana at her scheduled followup. If she has any further problems or develops any signs or symptoms of infection to follow up with immediately. Job ID: [id number] DocumentID: [id number] Dictated Date: 12/18/2020 08:13:44 Technical Artist Date: 12/18/2020 08:44:54 Dictated By: SEAMUS GAMINO MD
--- NOTE | 2020-12-18 12:39 | History & Physical ---
BLAIRCAROLINE 12/18/20 1239: History of Present Illness History of Present Illness Reason for visit/HPI Patient is a 50yo female who presented to ER yesterday with c/o dizziness, low BP (reportedly 70/56) and concern about post operative infection of her L knee. She had knee replacement on 12/05, and states that her wound has been "oozing" blood since she was discharged on 12/07. She was supposed to have physical therapy but has not had any as of yet. She is a smoker, 1+ ppd. She drinks 4+ beers daily and was intoxicated upon her arrival to the ER. She was oriented X3 this morning. States that she is feeling much better than she was yesterday. Denies any N/V, sweats/chills or SOA. Date of Admission Dec 18, 2020 at 01:25 Date Seen by a Provider: Dec 18, 2020 Time Seen by a Provider: 09:30 I consulted on this patient on 12/18/20 12:30 Attending Physician Susy Tucker MD Admitting Physician No,Local Physician Consult Allergies and Home Medications Allergies Coded Allergies: Sulfa (Sulfonamide Antibiotics) (Verified Allergy, Unknown, Angioedema, 12/18/20) Patient Home Medication List Acetaminophen (Acetaminophen) 325 Mg Tablet, 650 MG PO Q6H PRN for PAIN-MILD (1- 4), (Reported) Entered as Reported by: NITZA HOBBS on 12/18/201046 Last Action: Reviewed Amlodipine Besylate (Amlodipine Besylate) 5 Mg Tablet, 5 MG PO DAILY, (Reported) Entered as Reported by: NITZA HOBBS on 12/18/201046 Last Action: Reviewed Aspirin (Aspirin EC) 81 Mg Tablet., 81 MG PO DAILY, (Reported) Entered as Reported by: NITZA HOBBS on 12/18/201046 Last Action: Reviewed Duloxetine HCl (Duloxetine HCl) 30 Mg Capsule., 30 MG PO DAILY, (Reported) Entered as Reported by: NITZA HOBBS on 12/18/201046 Last Action: Reviewed Hydrocodone/Acetaminophen (Hydrocodone-Acetamin 7.5-325) 1 Each Tablet, 1 EA PO Q6H PRN for PAIN-MODERATE (5-7), (Reported) Entered as Reported by: NITZA HOBBS on 12/18/201046 Last Action: Continued Montelukast Sodium (Montelukast Sodium) 10 Mg Tablet, 10 MG PO DAILY, (Reported) Entered as Reported by: NITZA HOBBS on 12/18/201046 Last Action: Reviewed Pantoprazole Sodium (Pantoprazole Sodium) 20 Mg Tablet.dr, 20 MG PO DAILY, (Reported) Entered as Reported by: NITZA HOBBS on 12/18/201046 Last Action: Reviewed Propranolol HCl (Propranolol HCl ER) 60 Mg Cap.sa.24h, 60 MG PO DAILY, (Reported) Entered as Reported by: NITZA HOBBS on 12/18/201046 Last Action: Reviewed Sodium Chloride (Sodium Chloride) 1 Gm Tab, 1 GM PO DAILY, (Reported) Entered as Reported by: NITZA HOBBS on 12/18/201046 Last Action: Reviewed Past Unljpse-Liftbn-Dlsklb Hx Patient Social History Tobacco Use?: Yes Tobacco type used: Cigarettes Smoking Status: Current Everyday Smoker Smokeless Tobacco Frequency: Former User Use of E-Cig and/or Vaping dev: No Substance use?: No Alcohol Use?: Yes Alcohol type: Beer Alcohol Frequency: Daily Pt feels they are or have been: No Immunizations Up To Date First/Initial COVID19 Vaccinat: 06/14 Second COVID19 Vaccination Jose: 07/14 Hepatitis A: No Hepatitis B: No Current Status status: No status: No Advance Directives: No Communicates: Verbally Primary Language: Lithuanian Preferred Spoken Language: Lithuanian Is interpretation needed?: No Implanted or Applied Medical D: None Past Medical History Surgeries: Hysterectomy, Oophorectomy, Orthopedic COPD Hypertension FORKLIFT MECHANIC History: Hysterectomy, Menopausal Gastroesophageal Reflux Arthritis Blood Disorders: No COPD Family Medical History SOCIAL HISTORY: -SMOKES > 1 PPD -ETOH--"4 BEERS" A DAY -DRUGS--"TRIED MARIJUANA" Review of Systems Constitutional: No chills, No diaphoresis Respiratory: No cough, No short of breath Cardiovascular: No chest pain Gastrointestinal: No abdominal pain, No nausea, No vomiting Musculoskeletal: joint pain (L knee. s/p L knee replacement 2wks ago.) Psychiatric/Neurological: Denies Tremors Physical Exam Vital Signs Vital Signs - First Documented 12/17/20 22:20 Temp 35.8 Pulse 83 Resp 17 B/P (MAP) 80/49 (59) Pulse Ox 98 O2 Delivery Room Air Capillary Refill : Less Than 3 Seconds Height, Weight, BMI Height: '" Weight: lbs. oz. kg; 29.08 BMI Method: General Appearance: No Apparent Distress, WD/WN HEENT: PERRL/EOMI Neck: Normal Inspection, Supple Respiratory: Lungs Clear, No Accessory Muscle Use, No Respiratory Distress Cardiovascular: Regular Rate, Rhythm, No Murmur Gastrointestinal: Normal Bowel Sounds, Non Tender, Soft Extremity: Normal Inspection, No Pedal Edema, Other (L knee incision w/sutures in place. Healing well, no obvious signs of infection. Minimal edema) Neurologic/Psychiatric: Alert, Oriented x3, Normal Mood/Affect Skin: Normal Color, Warm/Dry Assessment/Plan Assessment and Plan Hypovolemic shock Hypovolemic hyponatremia Hypokalemia IV Fluids Sodium back up to 135 this morning Potassium 2.8 this morning, will supplement S/P L Knee Replacement No obvious signs of infxn, will continue Zosyn and reevaluate after cultures return Stop vanc LE CT revealed mild L knee joint effusion, edema Alcohol abuse with intoxication CIWA Protocol Lorazepam Multivitamins, Thiamine, Folic Acid Explained to pt that drinking so much beer likely lead to her dehydration and low BP Recommended she try to drink less beer and more water DVT PPx Lovenox Admission Diagnosis Admission Status: Inpatient Order (span 2 midnights) Reason for Inpatient Admission: IV fluids, electrolyte replacement [place] LIVINGSTON MD 12/18/20 2302: History of Present Illness History of Present Illness Time Seen by a Provider: 10:00 Allergies and Home Medications Allergies Coded Allergies: Sulfa (Sulfonamide Antibiotics) (Verified Allergy, Unknown, Angioedema, 12/18/20) Patient Home Medication List Home Medication List Reviewed: Yes Acetaminophen (Acetaminophen) 325 Mg Tablet, 650 MG PO Q6H PRN for PAIN-MILD (1- 4), (Reported) Entered as Reported by: NITZA HOBBS on 12/18/20 104 Last Action: Reviewed Amlodipine Besylate (Amlodipine Besylate) 5 Mg Tablet, 5 MG PO DAILY, (Reported) Entered as Reported by: NITZA HOBBS on 12/18/20 104 Last Action: Reviewed Aspirin (Aspirin EC) 81 Mg Tablet.dr, 81 MG PO DAILY, (Reported) Entered as Reported by: NITZA HOBBS on 12/18/201046 Last Action: Reviewed Duloxetine HCl (Duloxetine HCl) 30 Mg Capsule.dr, 30 MG PO DAILY, (Reported) Entered as Reported by: NITZA HOBBS on 12/18/201046 Last Action: Reviewed Hydrocodone/Acetaminophen (Hydrocodone-Acetamin 7.5-325) 1 Each Tablet, 1 EA PO Q6H PRN for PAIN-MODERATE (5-7), (Reported) Entered as Reported by: NITZA HOBBS on 12/18/201046 Last Action: Continued Montelukast Sodium (Montelukast Sodium) 10 Mg Tablet, 10 MG PO DAILY, (Reported) Entered as Reported by: NITZA HOBBS on 12/18/201046 Last Action: Reviewed Pantoprazole Sodium (Pantoprazole Sodium) 20 Mg Tablet.dr, 20 MG PO DAILY, (Reported) Entered as Reported by: NITZA HOBBS on 12/18/201046 Last Action: Reviewed Propranolol HCl (Propranolol HCl ER) 60 Mg Cap.sa.24h, 60 MG PO DAILY, (Reported) Entered as Reported by: NITZA HOBBS on 12/18/201046 Last Action: Reviewed Sodium Chloride (Sodium Chloride) 1 Gm Tab, 1 GM PO DAILY, (Reported) Entered as Reported by: NITZA HOBBS on 12/18/201046 Last Action: Reviewed Past Umdiyov-Aylywt-Dlnjfk Hx Past Medical History Surgeries: Joint Replacement Arthritis Family Medical History No Pertinent Family Hx Physical Exam General Appearance: No Apparent Distress, WD/WN HEENT: PERRL/EOMI, Pharynx Normal Neck: Normal Inspection, Supple Respiratory: Lungs Clear, Normal Breath Sounds, No Respiratory Distress Cardiovascular: Regular Rate, Rhythm, No Edema, No Murmur Gastrointestinal: Normal Bowel Sounds, Non Tender, Soft Extremity: Swelling (left knee, incision clean/dry/intact, no erythema or drainage) Neurologic/Psychiatric: Alert, No Motor/Sensory Deficits, Normal Mood/Affect Skin: Normal Color, Warm/Dry Assessment/Plan Assessment and Plan Continue fluids. Monitor electrolytes. Not septic. Shock resolved. Monitor on CIWA protocol. Transfer to medical floor. Problems: (1) Hypovolemic shock Status: Acute (2) Dehydration Status: Acute (3) Acute hyponatremia Status: Acute (4) Status post left knee replacement Status: Acute (5) Alcohol intoxication Status: Acute Admission Diagnosis Hypovolemic shock Admission Status: Inpatient Order (span 2 midnights) Reason for Inpatient Admission: IV fluids, antibiotics, electrolyte replacement Supervisory-Addendum Brief Verification & Attestation Participated in pt care: history, MDM, physical Personally performed: exam, history, MDM, supervision of care Care discussed with: Medical Student Procedures: n/a Results interpretation: Verified all documentation A medical student performed and documented this service in my presence. I r eviewed and verified all information documented by the medical student and made modifications to such information, when appropriate. I personally performed the physical exam and medical decision making. CAROLINE PINTO Dec 18, 2020 12:39 [place] LIVINGSTON MD Dec 18, 2020 17:53
--- NOTE | 2020-12-18 13:43 | Physical Therapy Evaluation ---
PT Evaluation-General Medical Diagnosis Admission Date Dec 18, 2020 at 01:25 Medical Diagnosis: septic shock, s/p L TKA, ETOH Onset Date: Dec 17, 2020 Therapy Diagnosis Therapy Diagnosis: Gait deficit, strength deficit Precautions Precautions/Isolations: Fall Prevention, Standard Precautions Weight Bear Status Left Lower Extremity: Left Weight Bearing/Tolerated Referral Physician: Jakub Reason for Referral: Evaluation/Treatment Medical History Pertinent Medical History: Arthritis, COPD, HTN, Smoking Reviewed History: Yes Social History Home: Single Level Current Living Status: Alone Entry Into Home: Stairs Without Railing PT Steps Into Home: 2 PT Steps Inside Home: 2 Prior Prior Level of Function SCALE: Activities may be completed with or without assistive devices. 2-Lozghfrxiw-isinszg completes the activity by him/herself with no assistance from a helper. 5-Set-up or Clean-up Assistance-helper sets up or cleans up; patient completes activity. [place] assists only prior to or following the activity. 4-Supervision or Touching Assistance-helper provides verbal cues and/or touching/steadying and/or contact guard assistance as patient completes activity. Assistance may be provided throughout the activity or intermittently. 3-Partial/Moderate Assistance-helper does LESS THAN HALF the effort. [place] lifts, holds or supports trunk or limbs, but provides less than half the effort. 2-Substantial/Maximal Assistance-helper does MORE THAN HALF the effort. [place] lifts or holds trunk or limbs and provides more than half the effort. 5-Oqopbbihb-akjhaf does ALL the effort. Patient does none of the effort to complete the activity. Or, the assistance of 2 or more helpers is required for the patient to complete the activity. If activity was not attempted, code reason: 7-Patient Refused. 9-Not Applicable-not attempted and the patient did not perform the activity before the current illness, exacerbation or injury. 10-Not Attempted due to Environmental Limitations-(lack of equipment, weather restraints, etc.). 88-Not Attempted due to Medical Conditions or Safety Concerns. Bed Mobility: 6 Transfers (B,C,W/C): 6 Gait: 6 Stairs: 6 Indoor Mobility (Ambulation): Independent Stairs: Independent Prior Devices Use: Walker Prior Device Use: Used FWW after Left TKA on 12-07-20 PT Evaluation-Current Subjective Patient reports no pain at this time. She states "I'm just tired." Objective Patient Orientation: Person, Place, Time, Situation Attachments: Polar Pack, IV ROM/Strength ROM Lower Extremities Left knee AROM 20 degrees from neutral extension to 85 Degrees flexion Strength Lower Extremities Right LE 4/5 grossly; left LE 3/5 knee flexion and extension, 4-/5 remaining hip and ankle motions. Sensory Vision: Functional Hearing: Functional Sensation Right Lower Extremit: Intact Sensation Left Lower Extremity: Intact Transfers Roll Left to Right (QC): 4 Sit to Lying (QC): 4 Lying to Sitting/Side of Bed(Q: 4 Sit to Stand (QC): 4 Chair/Kxj-mt-Wybfo Xfer(QC): 4 Toilet Transfer (QC): 4 Gait Does the Patient Walk?: Yes Mode of Locomotion: Walk Anticipated Mode of Locomotion: Walk Walk 10 feet (QC): 4 Distance: 20 feet Gait Assistive Device: FWW Balance Sitting Static: Normal Sitting Dynamic: Normal Standing Static: Good Standing Dynamic: Fair Assessment/Needs Patient tolerated treatment well. Demonstrates significant loss of extension ROM and moderate loss of flexion ROM. Patient ambulates 20 feet with FWW, with CGA and verbal cues for safety, progression, balance and posture. Patient ambulates with antalgic gait pattern of decreased stance time on left LE, lacks TKE and decreased balance on the left LE> Patient in chair post treatment with all needs met, nursing notified, call light in hand. Rehab Potential: Fair PT Freight Breaker Goals Freight Breaker Goals PT Usp Goals Time Frame: Jan 08, 2021 Roll Left & Right (QC): 6 Sit to Lying (QC): 6 Lying-Sitting on Side/Bed(QC): 6 Sit to Stand (QC): 6 Chair/Ecn-ep-Lkbob Xfer(QC): 6 Toilet Transfer (QC): 6 Does the Patient Walk: Yes Walk 10 feet (QC): 6 Walk 50ft with 2 Turns (QC): 6 Walk 150 ft (QC): 6 1 Step (curb) (QC): 5 4 Steps (QC): 5 PT Plan Problem List Problem List: Activity Tolerance, Functional Strength, Safety, Balance, Gait, Transfer, Bed Mobility, ROM Treatment/Plan Treatment Plan: Continue Plan of Care Treatment Plan: Bed Mobility, Education, Functional Activity Tamiko, Functional Strength, Group Therapy, Gait, Safety, Therapeutic Exercise, Transfers Treatment Duration: Feb 21, 2021 Frequency: 11 times per week Estimated Hrs Per Day: .25 hour per day Safety Risks/Education Patient Education: Gait Training, Reviewed Precautions Teaching Recipient: Patient, Family Teaching Methods: Demonstration, Discussion Response to Teaching: Verbalize Understanding, Return Demonstration Time/GCodes Time In: 1318 Time Out: 1343 Total Billed Treatment Time: 25 Total Billed Treatment Visit, ana Diaz JOHN A PT Dec 18, 2020 13:43
[2020-12-18] MEDS ORDERED: HYDROcodone/APAP 7.5 MG/325 MG (LORTAB, LORCET PLUS) TABLET PO PRN (16:30)
[2020-12-18] MEDS ORDERED: TROUGH ORDER-PHARMACY XX ONE (23:00)
[2020-12-18 23:51] VITALS: BP 146/90
[2020-12-19] MEDS ORDERED: RT-ALBUTEROL SULF 2.5 MG/3 ML PRE-MIX VIAL INH PRN
[2020-12-19] MEDS ORDERED: RT-ALBUTEROL SULF 2.5 MG/3 ML PRE-MIX VIAL ONE (00:03)
[2020-12-19] MEDS: LACTATED RINGERS 1,000 ML IV SCH ×3 (00:23→07:48)
[2020-12-19] MEDS: D5 LR IV SOLUTION 1,000 ML IV SCH ×2 (02:24→10:45)
[2020-12-19] MEDS: RT-ALBUTEROL/IPRATROPIUM 3 ML (DUONEB) VIAL INH SCH ×2 (02:44→10:04)
[2020-12-19 04:33] LABS: BASOPHILS % (AUTO) 1 % (0-10); EOSINOPHILS % (AUTO) 1 % (0-10); HEMATOCRIT 24 % (35-52); HEMOGLOBIN 8.5 g/dL (11.5-16.0); LYMPHOCYTES # (AUTO) 0.6 10^3/uL (1.0-4.0); LYMPHOCYTES % (AUTO) 16 % (12-44); MEAN CORPUSCULAR HEMOGLOBIN 37 pg (25-34); MEAN CORPUSCULAR HGB CONC 35 g/dL (32-36); MEAN CORPUSCULAR VOLUME 106 fL (80-99); MEAN PLATELET VOLUME 10.2 fL (9.0-12.2); MONOCYTES # (AUTO) 0.5 10^3/uL (0.0-1.0); MONOCYTES % (AUTO) 13 % (0-12); NEUTROPHILS # (AUTO) 2.6 10^3/uL (1.8-7.8); NEUTROPHILS % (AUTO) 69 % (42-75); PLATELET COUNT 202 10^3/uL (130-400); WHITE BLOOD COUNT 3.8 10^3/uL (4.3-11.0)
[2020-12-19 04:35] LABS: ALBUMIN 2.9 GM/DL (3.2-4.5); POTASSIUM 3.2 MMOL/L (3.6-5.0)
[2020-12-19 04:36] LABS: CALCIUM 8.4 MG/DL (8.5-10.1)
[2020-12-19 04:37] LABS: TOTAL PROTEIN 5.3 GM/DL (6.4-8.2)
[2020-12-19 04:39] LABS: BILIRUBIN,TOTAL 0.7 MG/DL (0.1-1.0)
[2020-12-19 04:40] LABS: PHOSPHORUS 1.9 MG/DL (2.3-4.7)
[2020-12-19 04:41] LABS: CREATININE SERUM 0.49 MG/DL (0.60-1.30)
[2020-12-19] MEDS: THIAMINE 100 MG (VITAMIN B-1) TAB PO SCH (05:59)
[2020-12-19] MEDS: MULTIVIT W/MINERALS TAB (THERAGRAN M) PO SCH (05:59)
[2020-12-19] MEDS ORDERED: MAGNESIUM 1 GM/100 ML IVPB 100 ML IV SCH (06:00)
[2020-12-19] MEDS ORDERED: KCL 20 MEQ TAB (K-DUR) PO SCH (06:00)
[2020-12-19] MEDS ORDERED: POTASSIUM CL 10MEQ/50ML IVPB 50 ML IV SCH (06:00)
[2020-12-19] MEDS ORDERED: KCL 20 MEQ TAB (K-DUR) PO ONE ×2 (06:30→08:30)
[2020-12-19] MEDS: FOLIC ACID 1 MG TAB PO SCH (09:25)
[2020-12-19] MEDS: MAGNESIUM OXIDE (MAG-OX)400 MG TAB PO SCH (09:25)
[2020-12-19] MEDS: ENOXAPARIN 40 MG/0.4 ML (LOVENOX) SYR SC SCH (09:25)
--- NOTE | 2020-12-19 10:04 | Physical Therapy Daily Note ---
PT Daily Note-Current Subjective Patient agrees to PT. Patient states, "I going home." Pain Numeric Pain Scale: 3 Location: Left Location Body Site: Knee Pain Description: Ache Mental Status Patient Orientation: Normal For Age Attachments: IV Transfers SCALE: Activities may be completed with or without assistive devices. 9-Epynikvmap-hafqwnt completes the activity by him/herself with no assistance from a helper. 5-Set-up or Clean-up Assistance-helper sets up or cleans up; patient completes activity. [place] assists only prior to or following the activity. 4-Supervision or Touching Assistance-helper provides verbal cues and/or touching/steadying and/or contact guard assistance as patient completes activity. Assistance may be provided throughout the activity or intermittently. 3-Partial/Moderate Assistance-helper does LESS THAN HALF the effort. [place] lifts, holds or supports trunk or limbs, but provides less than half the effort. 2-Substantial/Maximal Assistance-helper does MORE THAN HALF the effort. [place] lifts or holds trunk or limbs and provides more than half the effort. 3-Emvialjow-tyggdm does ALL the effort. Patient does none of the effort to complete the activity. Or, the assistance of 2 or more helpers is required for the patient to complete the activity. If activity was not attempted, code reason: 7-Patient Refused. 9-Not Applicable-not attempted and the patient did not perform the activity before the current illness, exacerbation or injury. 10-Not Attempted due to Environmental Limitations-(lack of equipment, weather restraints, etc.). 88-Not Attempted due to Medical Conditions or Safety Concerns. Lying to Sitting/Side of Bed(Q: 6 Sit to Stand (QC): 6 Chair/Rau-cy-Psdkh Xfer(QC): 6 Toilet Transfer (QC): 6 Weight Bearing Left Lower Extremity: Left Weight Bearing/Tolerated Gait Training Does the Patient Walk?: Yes Distance: 300' Walk 10 feet (QC): 6 Walk 50 ft with 2 Turns(QC): 6 Walk 150 ft (QC): 6 Gait Assistive Device: FWW safe and steady gait sequence/slightly antalgic Exercises Supine Ex: Ankle pumps, Quad Set, Heel Slides Supine Reps: 15 Seated Therapy Exercises: Long arc quads Seated Reps: 15 Assessment Patient ceased treatment stating, "I'm done. I want a shower and to go home." Patient at independent PLOF with gross motor skills. PT Chcf Goals Chcf Goals PT Criminal Research Specialist Goals Time Frame: Jan 08, 2021 Roll Left & Right (QC): 6 Sit to Lying (QC): 6 Lying-Sitting on Side/Bed(QC): 6 Sit to Stand (QC): 6 Chair/Rbp-em-Tifne Xfer(QC): 6 Toilet Transfer (QC): 6 Does the Patient Walk: Yes Walk 10 feet (QC): 6 Walk 50ft with 2 Turns (QC): 6 Walk 150 ft (QC): 6 1 Step (curb) (QC): 5 4 Steps (QC): 5 PT Plan Treatment/Plan Treatment Plan: Continue Plan of Care Treatment Plan: Bed Mobility, Education, Functional Activity Tamiko, Functional Strength, Group Therapy, Gait, Safety, Therapeutic Exercise, Transfers Treatment Duration: Feb 21, 2021 Frequency: 11 times per week Estimated Hrs Per Day: .25 hour per day Time/GCodes Time In: 815 Time Out: 826 Total Billed Treatment Time: 11 Total Billed Treatment 1 visit FA 11 min SHARON ROSA PT Dec 19, 2020 10:04
[2020-12-19] MEDS ORDERED: POTASSIUM CL 10MEQ/50ML IVPB 50 ML IV ONE (10:30)
--- NOTE | 2020-12-19 11:09 | Occupational Ther Daily Note ---
OT Current Status-Daily Note Subjective Pt was seated in chair w/ legs elevated upon OT arrival. Pt had a female visitor for beginning portion of tx session. Pt agreed to tx session. Mental Status/Objective Patient Orientation: Person, Place, Situation Attachments: IV ADL-Treatment Therapy Code Descriptions/Definitions Functional [place] Measure: 0=Not Assessed/NA 4=Minimal Assistance 1=Total Assistance 5=Supervision or Setup 2=Maximal Assistance 6=Modified [place] 3=Moderate Assistance 7=Complete IndependenceSCALE: Activities may be completed with or without assistive devices. 4-Ywzebbehox-ovvnkat completes the activity by him/herself with no assistance from a helper. 5-Set-up or Clean-up Assistance-helper sets up or cleans up; patient completes activity. [place] assists only prior to or following the activity. 4-Supervision or Touching Assistance-helper provides verbal cues and/or touching/steadying and/or contact guard assistance as patient completes activity. Assistance may be provided throughout the activity or intermittently. 3-Partial/Moderate Assistance-helper does LESS THAN HALF the effort. [place] lifts, holds or supports trunk or limbs, but provides less than half the effort. 2-Substantial/Maximal Assistance-helper does MORE THAN HALF the effort. [place] lifts or holds trunk or limbs and provides more than half the effort. 0-Dupalxsnl-sapuss does ALL the effort. Patient does none of the effort to complete the activity. Or, the assistance of 2 or more helpers is required for the patient to complete the activity. If activity was not attempted, code reason: 7-Patient Refused. 9-Not Applicable-not attempted and the patient did not perform the activity before the current illness, exacerbation or injury. 10-Not Attempted due to Environmental Limitations-(lack of equipment, weather restraints, etc.). 88-Not Attempted due to Medical Conditions or Safety Concerns. On/Off Footwear: 6 Toileting Hygiene (QC): 6 (IND with toileting) Toilet Transfer (QC): 6 (IND) Other Treatment Pt was seated in chair w/ legs elevated upon OT arrival. Pt had a female visitor for beginning portion of tx session. Pt agreed to tx session. Pt was educated on sock aide and master of ceremonies for ADL tasks, pt does like the sock aide, pt does not like the master of ceremonies per previous experience. Pt transferred from sit to stand independently. Pt performed functional mobility to toilet, no AD. Pt performed toileting tasks, see above QC's. Pt performed functional mobility from toilet to sink side for hand hygiene, then to seated in chair at SBA. Pt able to doff socks independently, requests OT to hand her clothing items so she can get dressed. Pt states no further concerns with ADLs, and feels like she is at her PLOF. Post tx session, pt was seated in chair, call light within reach, and all needs met. Education OT Patient Education: Energy conservation, Modified ADL techniques, Progress toward Goal/Update tx plan, Purpose of tx/functional activities, Safety issues, Use of adapted equipment Teaching Recipient: Patient, Friend Teaching Methods: Discussion Response to Teaching: Verbalize Understanding OT Information Systems Director Goals Long-Term Goals Time Frame: Dec 29, 2020 Eating (QC): 6 Oral Hygiene (QC): 6 Toileting Hygiene (QC): 6 Shower/Bathe Self (QC): 4 Upper Body Dressing (QC): 5 Lower Body Dressing (QC): 4 On/Off Footwear (QC): 4 Additional Goals: 1-Demonstrate ADL Tasks, 2-Verbalize Understanding, 3- ImproveStrength/Tamiko 1=Demonstrate adherence to instructed precautions during ADL tasks. 2=Patient will verbalize/demonstrate understanding of assistive devices/modifications for ADL. 3=Patient will improve strength/tolerance for activity to enable patient to perform ADL's. OT Education/Plan Problem List/Assessment Assessment: Decreased Activ Tolerance, Impaired I ADL's Pt independent with ADLs and at PLOF, she has no concerns with her ability to complete ADLs upon returning home. No further skilled OT Services indicated at this time. Discharge Recommendations Plan/Recommendations: Discharge/Goals Met Treatment Plan/Plan of Care Patient would benefit from OT for education, treatment and training to promote independence in ADL's, mobility, safety and/or upper extremity function for ADL's. Plan of Care: ADL Retraining, Functional Mobility, UE Funct Exercise/Act Treatment Duration: Dec 29, 2020 Frequency: 5 times per week Estimated Hrs Per Day: .25 hour per day Rehab Potential: Fair Time/GCodes Start Time: 10:11 Stop Time: 10:28 Total Time Billed (hr/min): 17 Billed Treatment Time 1 Visit, ADL DONELL JOINER OT Dec 19, 2020 11:09
--- NOTE | 2020-12-19 11:31 | Progress Note ---
Subjective Subjective Date Seen by Provider: Dec 19, 2020 Time Seen by Provider: 09:15 Patient feels very well this morning and states she is ready to go home. She denies any sweats/chills, SOA, cough or new pain. She was mildly nauseous last night but did not vomit. She is having normal bowel movements and urination. Review of Systems General: No Chills, No Night Sweats HEENT: No Head Aches Pulmonary: No Dyspnea, No Cough Cardiovascular: No: Chest Pain Gastrointestinal: Nausea (last night, mild); No: Vomiting Objective Exam Vital Signs Vital Signs Date Time Temp Pulse Resp B/P (MAP) Pulse Ox O2 Delivery O2 Flow Rate FiO2 12/19/20 10:05 96 Room Air 12/19/20 07:44 36.4 128 22 155/96 91 Nasal Cannula 6.00 12/19/20 04:11 Room Air 12/19/20 03:58 36.5 115 20 134/85 95 Nasal Cannula 6.00 12/19/20 02:45 98 Nasal Cannula 3.00 12/19/20 00:07 99 Nasal Cannula 4.00 12/19/20 00:00 Room Air 12/18/20 23:51 121 94 12/18/20 23:40 36.8 121 22 146/90 94 Nasal Cannula 6.00 12/18/20 20:25 37.4 110 20 139/88 95 Room Air 12/18/20 20:00 Room Air 12/18/20 16:21 Room Air 12/18/20 16:00 105 21 97 Room Air 12/18/20 16:00 36.8 113 23 123/79 97 Room Air 12/18/20 13:00 108 12/18/20 12:36 121/76 12/18/20 12:29 108 25 97 Room Air 12/18/20 12:00 108 24 93 Nasal Cannula 2.00 I & O0 12/19/20 07:00 Intake Total 4060 ml Output Total 2850 ml Balance 1210 ml General Appearance: No Apparent Distress, WD/WN HEENT: PERRL/EOMI, Pharynx Normal Neck: Normal Inspection, Supple Respiratory: Lungs Clear, Normal Breath Sounds, No Respiratory Distress Cardiovascular: Regular Rate, Rhythm, No Edema, No Murmur Gastrointestinal: Normal Bowel Sounds, Non Tender, Soft Extremity: Swelling (left knee, incision clean/dry/intact, no erythema or drainage) Neurologic/Psychiatric: Alert, No Motor/Sensory Deficits, Normal Mood/Affect Skin: Normal Color, Warm/Dry Results Lab Laboratory Tests 12/18/20 14:50: Potassium Level 3.7 12/18/20 15:18: Glucometer 87 12/18/20 22:55: Vancomycin Level Trough 10.1 12/19/20 04:20: Potassium Level 3.2L, White Blood Count 3.8L, Red Blood Count 2.30L, Hemoglobin 8.5L, Hematocrit 24L, Mean Corpuscular Volume 106H, Mean Corpuscular Hemoglobin 37H, Mean Corpuscular Hemoglobin Concent 35, Red Cell Distribution Width 13.2, Platelet Count 202, Mean Platelet Volume 10.2, Immature Granulocyte % (Auto) 1, Neutrophils (%) (Auto) 69, Lymphocytes (%) (Auto) 16, Monocytes (%) (Auto) 13H, Eosinophils (%) (Auto) 1, Basophils (%) (Auto) 1, Neutrophils # (Auto) 2.6, Lymphocytes # (Auto) 0.6L, Monocytes # (Auto) 0.5, Eosinophils # (Auto) 0.0, Basophils # (Auto) 0.0, Immature Granulocyte # (Auto) 0.0, Sodium Level 135, Chloride Level 96L, Carbon Dioxide Level 24, Anion Gap 15H, Blood Urea Nitrogen 3L, Creatinine 0.49L, Estimat Glomerular Filtration Rate 135, BUN/Creatinine Ratio 6, Glucose Level 111H, Calcium Level 8.4L, Corrected Calcium 9.3, Phosphorus Level 1.9L, Total Bilirubin 0.7, Aspartate Amino Transf (AST/SGOT) 46 H, Alanine Aminotransferase (ALT/SGPT) 18, Alkaline Phosphatase 107, Total Protein 5.3L, Albumin 2.9L Microbiology 12/18/20 MRSA Screen - Final, Complete MRSA not isolated 12/17/20 Gram Stain - Final, Resulted 12/17/20 Wound Culture - Preliminary, Resulted Pseudomonas aeruginosa 12/17/20 Blood Culture - Preliminary, Resulted No growth Assessment/Plan Assessment/Plan Assessment and Plan Hypovolemic shock Hyponatremia Hypokalemia Pt eating/drinking ok, will d/c fluids Potassium trending up, 3.2 this morning Hyponatremia resolved S/P L Knee Replacement LE CT revealed mild L knee joint effusion, edema Culture + for Pseudomonas No sign of systemic infection Will send home with Levaquin rx Alcohol abuse with intoxication CIWA Protocol Lorazepam Multivitamins, Thiamine, Folic Acid Explained to pt that drinking so much beer likely lead to her dehydration and low BP Recommended she try to drink less beer and more water DVT PPx Lovenox Admission Dx Hypovolemic shock Hypovolemic hyponatremia Hypokalemia IV Fluids Sodium back up to 135 this morning Potassium 2.8 this morning, will supplement S/P L Knee Replacement No obvious signs of infxn, will continue Zosyn and reevaluate after cultures return Stop vanc LE CT revealed mild L knee joint effusion, edema Alcohol abuse with intoxication CIWA Protocol Lorazepam Multivitamins, Thiamine, Folic Acid Explained to pt that drinking so much beer likely lead to her dehydration and low BP Recommended she try to drink less beer and more water DVT PPx Lovenox Clinical Quality Measures Admission Status Admission Dx Hypovolemic shock Hypovolemic hyponatremia Hypokalemia IV Fluids Sodium back up to 135 this morning Potassium 2.8 this morning, will supplement S/P L Knee Replacement No obvious signs of infxn, will continue Zosyn and reevaluate after cultures return Stop vanc LE CT revealed mild L knee joint effusion, edema Alcohol abuse with intoxication CIWA Protocol Lorazepam Multivitamins, Thiamine, Folic Acid Explained to pt that drinking so much beer likely lead to her dehydration and low BP Recommended she try to drink less beer and more water DVT PPx Lovenox CAROLINE PINTO Dec 19, 2020 11:31
--- NOTE | 2020-12-19 11:37 | Pulmonary Consultation ---
History of Present Illness History of Present Illness Date Seen by Provider: Dec 19, 2020 History of Present Illness 50 y/o F with PMHx significant for who presented to ED with c/o dizziness, hypotension and concern for septic knee joint. Pt was started on IV antibiotics and hypotension resolved. Pulmonary consulted for hypoxia now requiring oxygen. Of note patient net positive 4L since admission with dry weight increase. She otherwise denies any significant trouble with her breathing. Allergies and Home Medications Allergies Coded Allergies: Sulfa (Sulfonamide Antibiotics) (Verified Allergy, Unknown, Angioedema, 12/18/20) Home Medications Acetaminophen 325 Mg Tablet, 650 MG PO Q6H PRN for PAIN-MILD (1-4), (Reported) Amlodipine Besylate 5 Mg Tablet, 5 MG PO DAILY, (Reported) Aspirin 81 Mg Tablet.dr, 81 MG PO DAILY, (Reported) Duloxetine HCl 30 Mg Capsule.dr, 30 MG PO DAILY, (Reported) Hydrocodone/Acetaminophen 1 Each Tablet, 1 EA PO Q6H PRN for PAIN-MODERATE (5- 7), (Reported) Levofloxacin 750 Mg Tablet, 750 MG PO DAILY Prescribed by: IND[place] LIVINGSTON on 12/19/20 1153 Montelukast Sodium 10 Mg Tablet, 10 MG PO DAILY, (Reported) Pantoprazole Sodium 20 Mg Tablet.dr, 20 MG PO DAILY, (Reported) Propranolol HCl 60 Mg Cap.sa.24h, 60 MG PO DAILY, (Reported) Sodium Chloride 1 Gm Tab, 1 GM PO DAILY, (Reported) Past Medical/Social/Family Hx Patient Social History Tobacco Use?: Yes Tobacco type used: Cigarettes Smoking Status: Current Everyday Smoker Smokeless Tobacco Frequency: Former User Use of E-Cig and/or Vaping dev: No Substance use?: No Alcohol Use?: Yes Alcohol type: Beer Alcohol Frequency: Daily Pt stated abuse/neglect: No Immunizations Up To Date Influenza Vaccine Up-to-Date: No; Not Current First/Initial COVID19 Vaccinat: 06/14 Second COVID19 Vaccination Jose: 07/14 Hepatitis A: No Hepatitis B: No TB Skin Test: None Current Status status: No status: No Advance Directives: No Communicates: Verbally Primary Language: Azeri Preferred Spoken Language: Azeri Is interpretation needed?: No Implanted or Applied Medical D: None Past Medical History COPD Family Medical History Family Hx: SOCIAL HISTORY: -SMOKES > 1 PPD -ETOH--"4 BEERS" A DAY -DRUGS--"TRIED MARIJUANA" Sepsis Event Evaluation Height, Weight, BMI Height: '" Weight: lbs. oz. kg; 29.08 BMI Method: Exam Exam Patient acknowledged, consented, and participated in this virtual visit which was conducted using real time audio/video Vital Signs Date Time Temp Pulse Resp B/P (MAP) Pulse Ox O2 Delivery O2 Flow Rate FiO2 12/19/20 10:05 96 Room Air 12/19/20 07:44 36.4 128 22 155/96 91 Nasal Cannula 6.00 12/19/20 04:11 Room Air 12/19/20 03:58 36.5 115 20 134/85 95 Nasal Cannula 6.00 12/19/20 02:45 98 Nasal Cannula 3.00 12/19/20 00:07 99 Nasal Cannula 4.00 12/19/20 00:00 Room Air 12/18/20 23:51 121 94 12/18/20 23:40 36.8 121 22 146/90 94 Nasal Cannula 6.00 12/18/20 20:25 37.4 110 20 139/88 95 Room Air 12/18/20 20:00 Room Air 12/18/20 16:21 Room Air 12/18/20 16:00 105 21 97 Room Air 12/18/20 16:00 36.8 113 23 123/79 97 Room Air 12/18/20 13:00 108 12/18/20 12:36 121/76 12/18/20 12:29 108 25 97 Room Air 12/18/20 12:00 108 24 93 Nasal Cannula 2.00 I & O 12/19/20 07:00 Intake Total 4060 ml Output Total 2850 ml Balance 1210 ml Height & Weight Height: '" Weight: lbs. oz. kg; 29.08 BMI Method: General Appearance: No Apparent Distress, WD/WN HEENT: PERRL/EOMI, Pharynx Normal Neck: Normal Inspection, Supple Respiratory: Lungs Clear, Normal Breath Sounds, No Respiratory Distress Cardiovascular: Regular Rate, Rhythm, No Edema, No Murmur Capillary Refill: Less Than 3 Seconds Gastrointestinal: non tender, soft Extremity: Swelling (left knee, incision clean/dry/intact, no erythema or drainage) Neurologic/Psychiatric: Alert, No Motor/Sensory Deficits, Normal Mood/Affect Skin: Normal Color, Warm/Dry Results Lab Laboratory Tests 12/17/20 22:25 12/18/20 05:15 12/18/20 14:50 12/19/20 04:20 Assessment/Plan Assessment/Plan SOB/New oxygen requirement is likely 2/2 vol overload. CXR on admission showed no interstitial process. Patient normally on RA. Would continue to titrate oxygen downwards and diurese as tolerated monitoring BP. Would obtain repeat Xray in AM. RAJINDER MCCRAY MD Dec 19, 2020 11:37
[2020-12-19] MEDS ORDERED: LEVO750T39 PO (11:53)
[2020-12-19 12:48] VITALS: BP 158/100
--- NOTE | 2020-12-19 13:34 | Discharge Summary ---
Discharge Summary Hospital Course Problems/Dx: (1) Hypovolemic shock Status: Acute (2) Dehydration Status: Acute (3) Acute hyponatremia Status: Acute (4) Status post left knee replacement Status: Acute (5) Alcohol intoxication Status: Acute Qualifiers: Qualified Codes: F10.920 - Alcohol use, unspecified with intoxication, uncomplicated Hospital Course Date of Admission: Dec 18, 2020 at 01:25 Admission Diagnosis : Hypovolemic shock Family Physician/Provider: KarenLocal Physician Date of Discharge: 12/19/20 Discharge Diagnosis: Hypovolemic shock Hospital Course: Vic Carlisle is a 50 year old female with recent left knee surgery who presented with hypotension. She was thought to be in septic shock, but she was not meeting SIRS criteria and there was no evidence for an infectious source. She was dehydrated and was given IV fluids for hypovolemic shock. She was also hyponatremic due to beer potomania. Her dehydration and hyponatremia resolved. She had a culture from her incision which grew Pseudomonas. There was no evidence of joint infection. Ortho was consulted and did not believe her to have an active infection. She was given a course of Levaquin to complete as an outpatient. She was recommended to discontinue alcohol use. She was discharged home in stable condition. Labs and Pending Lab Test: Laboratory Tests 12/18/20 14:50: Potassium Level 3.7 12/18/20 15:18: Glucometer 87 12/18/20 22:55: Vancomycin Level Trough 10.1 12/19/20 04:20: Potassium Level 3.2L, White Blood Count 3.8L, Red Blood Count 2.30L, Hemoglobin 8.5L, Hematocrit 24L, Mean Corpuscular Volume 106H, Mean Corpuscular Hemoglobin 37H, Mean Corpuscular Hemoglobin Concent 35, Red Cell Distribution Width 13.2, Platelet Count 202, Mean Platelet Volume 10.2, Immature Granulocyte % (Auto) 1, Neutrophils (%) (Auto) 69, Lymphocytes (%) (Auto) 16, Monocytes (%) (Auto) 13H, Eosinophils (%) (Auto) 1, Basophils (%) (Auto) 1, Neutrophils # (Auto) 2.6, Lymphocytes # (Auto) 0.6L, Monocytes # (Auto) 0.5, Eosinophils # (Auto) 0.0, Basophils # (Auto) 0.0, Immature Granulocyte # (Auto) 0.0, Sodium Level 135, Chl oride Level 96L, Carbon Dioxide Level 24, Anion Gap 15H, Blood Urea Nitrogen 3L, Creatinine 0.49L, Estimat Glomerular Filtration Rate 135, BUN/Creatinine Ratio 6, Glucose Level 111H, Calcium Level 8.4L, Corrected Calcium 9.3, Phosphorus Level 1.9L, Total Bilirubin 0.7, Aspartate Amino Transf (AST/SGOT) 46H, Alanine Aminotransferase (ALT/SGPT) 18, Alkaline Phosphatase 107, Total Protein 5.3L, Albumin 2.9L Microbiology 12/18/20 MRSA Screen - Final, Complete MRSA not isolated 12/17/20 Gram Stain - Final, Resulted 12/17/20 Wound Culture - Preliminary, Resulted Pseudomonas aeruginosa 12/17/20 Blood Culture - Preliminary, Resulted No growth Home Meds Active Levofloxacin 750 Mg Tablet 750 Mg PO DAILY 7 Days Reported Sodium Chloride 1 Gm Tab 1 Gm PO DAILY Duloxetine HCl 30 Mg Capsule.dr 30 Mg PO DAILY Propranolol HCl ER (Propranolol HCl) 60 Mg Cap.sa.24h 60 Mg PO DAILY Pantoprazole Sodium 20 Mg Tablet.dr 20 Mg PO DAILY Amlodipine Besylate 5 Mg Tablet 5 Mg PO DAILY Montelukast Sodium 10 Mg Tablet 10 Mg PO DAILY Aspirin EC (Aspirin) 81 Mg Tablet.dr 81 Mg PO DAILY Acetaminophen 325 Mg Tablet 650 Mg PO Q6H PRN Hydrocodone-Acetamin 7.5-325 (Hydrocodone/Acetaminophen) 1 Each Tablet 1 Ea PO Q6H PRN Assessment/Pt Instructions Take medications as prescribed. Follow up with your PCP. Return with worsening symptoms. Discharge Planning: <30 minutes discharge planning Discharge Instructions Discharge Diet: No Restrictions Activity as Tolerated: Yes Consultations Ortho Discharge Physical Examination Vital Signs Vital Signs Date Time Temp Pulse Resp B/P (MAP) Pulse Ox O2 Delivery O2 Flow Rate FiO2 12/19/20 12:48 36.4 128 22 158/100 96 Room Air 12/19/20 07:44 6.00 General Appearance: No Apparent Distress, Chronically ill Respiratory: Lungs Clear, Normal Breath Sounds, No Respiratory Distress Cardiovascular: Regular Rate, Rhythm, No Edema, No Murmur Gastrointestinal: Normal Bowel Sounds, Non Tender, Soft Extremity: Non Tender, No Pedal Edema, Other (left knee incision clean/dry/intact, mild erythema ) Neurologic/Psychiatric: Alert, Oriented x3, Normal Mood/Affect Allergies: Coded Allergies: Sulfa (Sulfonamide Antibiotics) (Verified Allergy, Unknown, Angioedema, 12/18/20) Discharge Summary Date of Admission Dec 18, 2020 at 01:25 Date of Discharge Discharge Date: Dec 19, 2020 Discharge Time: 13:30 Admission Diagnosis Hypovolemic shock Consults/Procedures Consulations Ortho Discharge Diagnosis (1) Hypovolemic shock Status: Acute (2) Dehydration Status: Acute (3) Acute hyponatremia Status: Acute (4) Status post left knee replacement Status: Acute (5) Alcohol intoxication Status: Acute Qualifiers: Qualified Codes: F10.920 - Alcohol use, unspecified with intoxication, u ncomplicated [place] LIVINGSTON MD Dec 19, 2020 13:34
== END 2020-12-19 13:30 | disposition home or self-care (01) | DRG 872 ==
LOC: ER 22:16 → ICU 12-18 01:25 → 4TH 12-19 00:26
PROVIDERS: ADMIT Family Medicine; ATTEND Internal Medicine
DX: R57.1 Hypovolemic shock (principal); E87.1 Hypo-osmolality and hyponatremia; L03.90 Cellulitis, unspecified; E86.0 Dehydration; Z96.652 Presence of left artificial knee joint; Z79.82 Long term (current) use of aspirin; Z79.899 Other long term (current) drug therapy; F17.210 Nicotine dependence, cigarettes, uncomplicated; J44.9 Chronic obstructive pulmonary disease, unspecified; I10 Essential (primary) hypertension; K21.9 Gastro-esophageal reflux disease without esophagitis; M19.90 Unspecified osteoarthritis, unspecified site; F10.129 Alcohol abuse with intoxication, unspecified; Z20.822 Contact with and (suspected) exposure to COVID-19
CPT/HCPCS: 36415; 51702; 71045; 73562; 73702; 80053; 80202; 80320; 80329; 81000; 82150; 82550; 82553; 82947; 83605; 83690; 83735; 83874; 83930; 83935; 84100; 84132; 84145; 84300; 85007; 85025; 85027; 85610; 85652; 85730; 86141; 87040; 87070; 87077; 87081; 87088; 87186; 87205; 87636; 93005; 93041; 94640; 94760

== ENCOUNTER 2020-12-29 18:17 | Emergency (ER) | payer MEDICARE ==
[~2020-12-29] VITALS: Ht 167 cm; Wt 78.0 kg
[~2020-12-29 18:17] MED LIST: ACET325T49 PO; AMLO-250 PO; ASPI-1238 PO; DULO30CA49 PO; HYDR-3817 PO; LEVO750T39 PO; MONT10TA32 PO; NF-NACL1GT PO; PANT20TA18 PO; PROP60CA PO
--- NOTE | 2020-12-29 18:41 | ED General ---
General Stated Complaint: POST OP/L LEG INFECTION Source of Information: Patient Exam Limitations: No Limitations History of Present Illness Date Seen by Provider: Dec 29, 2020 Time Seen by Provider: 18:38 Initial Comments To your by private vehicle accompanied by her sister using a wheeled walker with of left knee infection. She was at [facility] with left total knee replacement by Dr. Arana from 12/05/2020 to 12/07/2020. She was then admitted here short while thereafter with hypotension believed to be septic shock. She states that for the past week or 2 her blood pressure has been 80s over 60s so she stopped one of her blood pressure medications but she is not sure which one. No fevers or chills. She states the dog scratched her incision now she has some redness to the top of her incision. Timing/Duration: 1 Week Severity: Moderate Associated Systoms: Denies Symptoms Allergies and Home Medications Allergies Coded Allergies: Sulfa (Sulfonamide Antibiotics) (Verified Allergy, Unknown, Angioedema, 12/18/20) Patient Home Medication List Home Medication List Reviewed: Yes Acetaminophen (Acetaminophen) 325 Mg Tablet, 650 MG PO Q6H PRN for PAIN-MILD (1- 4), (Reported) Entered as Reported by: NITZA HOBBS on 12/18/20 104 Amlodipine Besylate (Amlodipine Besylate) 5 Mg Tablet, 5 MG PO DAILY, (Reported) Entered as Reported by: NITZA HOBBS on 12/18/20 104 Aspirin (Aspirin EC) 81 Mg Tablet., 81 MG PO DAILY, (Reported) Entered as Reported by: NITZA HOBBS on 12/18/20 104 Doxycycline Hyclate (Doxycycline Hyclate) 100 Mg Tablet, 100 MG PO BID Prescribed by: NARCISO GUY on 12/29/201924 Duloxetine HCl (Duloxetine HCl) 30 Mg Capsule.dr, 30 MG PO DAILY, (Reported) Entered as Reported by: NITZA HOBBS on 12/18/20 104 Hydrocodone/Acetaminophen (Hydrocodone-Acetamin 7.5-325) 1 Each Tablet, 1 EA PO Q6H PRN for PAIN-MODERATE (5-7), (Reported) Entered as Reported by: NITZA HOBBS on 12/18/20 104 Levofloxacin (Levofloxacin) 750 Mg Tablet, 750 MG PO DAILY Prescribed by: [place] LIVINGSTON on 12/19/20 1153 Montelukast Sodium (Montelukast Sodium) 10 Mg Tablet, 10 MG PO DAILY, (Reported) Entered as Reported by: NITZA HOBBS on 12/18/20 1047 Pantoprazole Sodium (Pantoprazole Sodium) 20 Mg Tablet.dr, 20 MG PO DAILY, (Reported) Entered as Reported by: NITZA HOBBS on 12/18/20 104 Propranolol HCl (Propranolol HCl ER) 60 Mg Cap.sa.24h, 60 MG PO DAILY, (Reported) Entered as Reported by: NITZA HOBBS on 12/18/20 104 Sodium Chloride (Sodium Chloride) 1 Gm Tab, 1 GM PO DAILY, (Reported) Entered as Reported by: NITZA HOBBS on 12/18/20 1047 Review of Systems Review of Systems Constitutional: see HPI EENTM: see HPI Respiratory: no symptoms reported Cardiovascular: no symptoms reported Genitourinary: no symptoms reported Musculoskeletal: see HPI Skin: no symptoms reported Psychiatric/Neurological: No Symptoms Reported Past Bgevddf-Czqtrb-Kbjepv Hx Immunizations Up To Date First/Initial COVID19 Vaccinat: 06/14 Second COVID19 Vaccination Jose: 07/14 Past Medical History Surgery/Hospitalization HX: LEFT KNEE REPLACEMENT 12/05/[address] ARANA AT [facility] HYSTERECTOMY/BILATERAL SALPINGO-OOPHORECTOMY CERVICAL SPINE SURGERY Surgeries: Yes Joint Replacement Respiratory: Yes COPD Cardiac: Yes Hypertension Neurological: No CFA History: Hysterectomy, Menopausal Genitourinary: No Gastrointestinal: Yes Gastroesophageal Reflux Musculoskeletal: Yes (CHRONIC NECK PAIN-S/P C-SPINE SURGERY; LEFT TOTAL KNEE REPLACEMENT) Arthritis HEENT: No Psychosocial: No Integumentary: No Blood Disorders: No Family Medical History No Pertinent Family Hx SOCIAL HISTORY: -SMOKES > 1 PPD -ETOH--"4 BEERS" A DAY -DRUGS--"TRIED MARIJUANA" Physical Exam Vital Signs Vital Signs - First Documented 12/29/20 18:30 Temp 36.5 Pulse 92 Resp 20 B/P (MAP) 85/58 (67) Pulse Ox 99 Capillary Refill : Height, Weight, BMI Height: '" Weight: lbs. oz. kg; 29.08 BMI Method: General Appearance: No Apparent Distress, WD/WN, Other (Alert, mentating well. Knows whereshe is, month, year . She appears much older than stated age.) Eyes: Bilateral Eye Normal Inspection, Bilateral Eye PERRL, Bilateral Eye EOMI Neck: Full Range of Motion, Normal Inspection Respiratory: No Accessory Muscle Use, No Respiratory Distress Cardiovascular: Regular Rate, Rhythm, Normal Peripheral Pulses Gastrointestinal: Normal Bowel Sounds, Non Tender, Soft Extremity: Normal Capillary Refill, Normal Inspection Neurologic/Psychiatric: Alert, Oriented x3 Skin: Normal Color, Warm/Dry, Other (There is about 1 cm of erythema lateral to either side of the incision for the most superior 4 cm of her knee incision. There is otherwise no erythema. There is swelling to the left leg from just above the knee down to the toes of about 3+. Right leg has edema from the distal third of the lower leg to the toes of about 3+.) Progress/Results/Core Measures Suspected Sepsis SIRS Temperature: Pulse: Respiratory Rate: Laboratory Tests 12/29/20 18:47: White Blood Count 3.1L Blood Pressure / Mean: Laboratory Tests 12/29/20 18:47: INR Comment 0.9, Platelet Count 203 Results/Orders Lab Results Laboratory Tests Test 12/29/20 18:47 Range/Units White Blood Count 3.1 L 4.3-11.0 10^3/uL Red Blood Count 2.69 L 3.80-5.11 10^6/uL Hemoglobin 9.9 L 11.5-16.0 g/dL Hematocrit 28 L 35-52 % Mean Corpuscular Volume 105 H 80-99 fL Mean Corpuscular Hemoglobin 37 H 25-34 pg Mean Corpuscular Hemoglobin Concent 35 32-36 g/dL Red Cell Distribution Width 14.3 10.0-14.5 % Platelet Count 203 130-400 10^3/uL Mean Platelet Volume 9.7 9.0-12.2 fL Immature Granulocyte % (Auto) 1 % Neutrophils (%) (Auto) 29 L 42-75 % Lymphocytes (%) (Auto) 47 H 12-44 % Monocytes (%) (Auto) 19 H 0-12 % Eosinophils (%) (Auto) 2 0-10 % Basophils (%) (Auto) 1 0-10 % Neutrophils # (Auto) 0.9 L 1.8-7.8 10^3/uL Lymphocytes # (Auto) 1.5 1.0-4.0 10^3/uL Monocytes # (Auto) 0.6 0.0-1.0 10^3/uL Eosinophils # (Auto) 0.1 0.0-0.3 10^3/uL Basophils # (Auto) 0.0 0.0-0.1 10^3/uL Immature Granulocyte # (Auto) 0.0 0.0-0.1 10^3/uL Prothrombin Time 12.4 12.2-14.7 SEC INR Comment 0.9 0.8-1.4 My Orders Orders - NARCISO UGY APRN Cbc With Automated Diff (12/29/20 18:34) Comprehensive Metabolic Panel (12/29/20 18:34) Alcohol (12/29/20 18:34) Protime With Inr (12/29/20 18:34) Ed Iv/Invasive Line Start (12/29/20 18:34) Lactated Ringers (Lr 1000 Ml Iv Solution (12/29/20 18:45) BNP (12/29/20 18:54) Manual Differential (12/29/20 18:47) Thyroid Stimulating Hormone (12/29/20 19:06) Free T4 (Free Thyroxine) (12/29/20 19:06) Ceftriaxone (Rocephin) (12/29/20 19:30) Vital Signs/I&O 12/29/20 18:30 Temp 36.5 Pulse 92 Resp 20 B/P (MAP) 85/58 (67) Pulse Ox 99 Capillary Refill : Departure Communication (Admissions) 1927-wants to leave. Blood pressure 78/54. I advised her against this. She says her blood pressure has been low like this all week at home. Discussed that if she wants to leave she is capable of making that decision right now despite her alcohol level she is capable of making a decision. Alert and oriented. Advised her to stop her blood pressure medication until otherwise directed. I will send in some doxycycline for the knee and will do a dose of Rocephin IV before she leaves. She agrees to sign AGAINST MEDICAL ADVICE paperwork. Impression Primary Impression: Hypotension Additional Impression: Soft tissue infection Disposition: AGAINST MEDICAL ADVICE Condition: Against Medical Advice Departure-Patient Inst. Referrals: [facility] (PCP/Family) Primary Care Physician Scripts Doxycycline Hyclate (Doxycycline Hyclate) 100 Mg Tablet 100 MG PO BID, #20 TAB 0 Refills Prov: NARCISO GUY APRN 12/29/20 NARCISO GUY APRN Dec 29, 2020 18:41
[2020-12-29] MEDS ORDERED: LACTATED RINGERS 1,000 ML IV SCH (18:45)
[2020-12-29 18:56] LABS: BASOPHILS % (AUTO) 1 % (0-10); EOSINOPHILS # (AUTO) 0.1 10^3/uL (0.0-0.3); EOSINOPHILS % (AUTO) 2 % (0-10); HEMATOCRIT 28 % (35-52); HEMOGLOBIN 9.9 g/dL (11.5-16.0); LYMPHOCYTES # (AUTO) 1.5 10^3/uL (1.0-4.0); LYMPHOCYTES % (AUTO) 47 % (12-44); MEAN CORPUSCULAR HEMOGLOBIN 37 pg (25-34); MEAN CORPUSCULAR HGB CONC 35 g/dL (32-36); MEAN CORPUSCULAR VOLUME 105 fL (80-99); MEAN PLATELET VOLUME 9.7 fL (9.0-12.2); MONOCYTES # (AUTO) 0.6 10^3/uL (0.0-1.0); MONOCYTES % (AUTO) 19 % (0-12); NEUTROPHILS # (AUTO) 0.9 10^3/uL (1.8-7.8); NEUTROPHILS % (AUTO) 29 % (42-75); PLATELET COUNT 203 10^3/uL (130-400); WHITE BLOOD COUNT 3.1 10^3/uL (4.3-11.0)
[2020-12-29 19:10] LABS: INR 0.9 (0.8-1.4); PROTHROMBIN TIME PATIENT 12.4 SEC (12.2-14.7)
[2020-12-29] MEDS ORDERED: DOXY100T2 PO (19:25)
[2020-12-29 19:28] LABS: ALBUMIN 3.3 GM/DL (3.2-4.5); BILIRUBIN,TOTAL 0.4 MG/DL (0.1-1.0); CALCIUM 8.6 MG/DL (8.5-10.1); CREATININE SERUM 0.56 MG/DL (0.60-1.30); POTASSIUM 3.5 MMOL/L (3.6-5.0); TOTAL PROTEIN 6.3 GM/DL (6.4-8.2)
[2020-12-29] MEDS ORDERED: cefTRIAXone 1,000 MG in WATER (STERILE) FOR INJECTION 10 ML IV ONE (19:30)
[2020-12-29 19:43] VITALS: BP 78/54
[2020-12-29 19:43] LABS: BASOPHILS % (MANUAL) 1 %; LYMPHOCYTES % (MANUAL) 41 %; MONOCYTES % (MANUAL) 13 %; NEUTROPHILS % (MANUAL) 45 %; RBC MORPH SEE REFERENCE
[2020-12-29 19:44] LABS: HYPOCHROMASIA SLIGHT
[2020-12-29 20:08] LABS: FREE T4 (FREE THYROXINE) 0.82 NG/DL (0.70-1.48)
== END 2020-12-29 19:43 | disposition left against medical advice (07) ==
LOC: EDUNIT# 18:17 → ER 18:18
DX: I95.9 Hypotension, unspecified (principal); M79.89 Other specified soft tissue disorders; J44.9 Chronic obstructive pulmonary disease, unspecified; I10 Essential (primary) hypertension; K21.9 Gastro-esophageal reflux disease without esophagitis; Z79.899 Other long term (current) drug therapy; Z79.82 Long term (current) use of aspirin
CPT/HCPCS: 80053; 83880; 84439; 84443; 85007; 85027; 85610; 99284; G0480; 36415; 80320

== ENCOUNTER 2021-07-19 09:17 | Emergency (ER) | payer MEDICARE ==
[~2021-07-19 09:17] MED LIST changes: +DOXY100T2 PO; +MONT-40 PO; -MONT10TA32 PO
== END 2021-07-19 09:24 | disposition left against medical advice (07) ==
LOC: EDUNIT# 09:17 → ER 09:19
DX: M54.9 Dorsalgia, unspecified (principal)

== ENCOUNTER 2021-11-15 03:25 | Emergency (ER) | payer MEDICARE ==
[~2021-11-15 03:25] MED LIST changes: +LEVO750T PO; -LEVO750T39 PO
--- NOTE | 2021-11-15 03:49 | ED General ---
General Chief Complaint: General Problems/Pain Stated Complaint: MALAISE Source of Information: Patient (PT IS A VERY POOR HISTORIAN, POOR MEMORY), EMS History of Present Illness Date Seen by Provider: Nov 15, 2021 Time Seen by Provider: 03:29 Initial Comments PT ARRIVES VIA EMS FROM HOME IN [place] BROTHER CALLED EMS PT WAS SITTING AT THE TABLE, AND BROTHER THOUGHT SHE WAS HAVING "CONVULSIONS" --WAS SHAKEY. EPISODE LASTED A FEW SECONDS DID NOT FALL OUT OF CHAIR OR HAVE ANY INJURIES PT WAS ACTING NORMAL WHEN SHE WOKE UP NO INCONTINENCE NO TONGUE BITING PT STATES SHE FEELS FINE, JUST IS TIRED AND IS READY TO GO TO BED. PT DOES NOT RECALL THE INCIDENT PT DOES NOT KNOW ANY OF HER MEDICATIONS OR WHAT SHE TAKES THEM FOR. DOES NOT KNOW IF SHE HAS BEEN TAKING THEM OR NOT FIRST RESPONDERS GOT BP OF 225/160 EMS HAD BLOOD PRESSURE READINGS OF: 165/128, THEN DOWN TO 160/98 ACCUCHECK FOR EMS 164 PT DRINKS AN UNKNOWN AMOUNT OF ALCOHOL EVERY DAY AND STATES SHE HAS BEEN DRINKING BEER TONIGHT--DOES NOT KNOW HOW MUCH SHE HAS DRANK STATES SHE SMOKES CIGARETTES, BUT DENIES ANY DRUG USE NOW OR IN THE PAST. Allergies and Home Medications Allergies Coded Allergies: Sulfa (Sulfonamide Antibiotics) (Verified Allergy, Unknown, Angioedema, 12/18/20) Patient Home Medication List Home Medication List Reviewed: Yes Acetaminophen (Acetaminophen) 325 Mg Tablet, 650 MG PO Q6H PRN for PAIN-MILD (1- 4), (Reported) Entered as Reported by: NITZA HOBBS on 12/18/201046 Amlodipine Besylate (Amlodipine Besylate) 5 Mg Tablet, 5 MG PO DAILY, (Reported) Entered as Reported by: NITZA HOBBS on 12/18/201046 Aspirin (Aspirin EC) 81 Mg Tablet., 81 MG PO DAILY, (Reported) Entered as Reported by: NITZA HOBBS on 12/18/201046 Doxycycline Hyclate (Doxycycline Hyclate) 100 Mg Tablet, 100 MG PO BID Prescribed by: NARCISO GUY on 12/29/201924 Duloxetine HCl (Duloxetine HCl) 30 Mg Capsule., 30 MG PO DAILY, (Reported) Entered as Reported by: NITZA HOBBS on 12/18/201046 Hydrocodone/Acetaminophen (Hydrocodone-Acetamin 7.5-325) 1 Each Tablet, 1 EA PO Q6H PRN for PAIN-MODERATE (5-7), (Reported) Entered as Reported by: NITZA HOBBS on 12/18/20 104 Levofloxacin (Levofloxacin) 750 Mg Tablet, 750 MG PO DAILY Prescribed by: [place] LIVINGSTON on 12/19/20 1153 Montelukast Sodium (Montelukast Sodium) 10 Mg Tablet, 10 MG PO DAILY, (Reported) Entered as Reported by: NITZA HOBBS on 12/18/20 104 Pantoprazole Sodium (Pantoprazole Sodium) 20 Mg Tablet.dr, 20 MG PO DAILY, (Reported) Entered as Reported by: NITZA HOBBS on 12/18/20 104 Propranolol HCl (Propranolol HCl ER) 60 Mg Cap.sa.24h, 60 MG PO DAILY, (Report ed) Entered as Reported by: NITZA HOBBS on 12/18/201046 Sodium Chloride (Sodium Chloride) 1 Gm Tab, 1 GM PO DAILY, (Reported) Entered as Reported by: NITZA HOBBS on 12/18/20 104 Review of Systems Review of Systems Constitutional: see HPI EENTM: no symptoms reported Respiratory: no symptoms reported Cardiovascular: see HPI Gastrointestinal: no symptoms reported Genitourinary: no symptoms reported Musculoskeletal: no symptoms reported Skin: no symptoms reported Psychiatric/Neurological: See HPI Hematologic/Lymphatic: No Symptoms Reported Immunological/Allergic: no symptoms reported Past Usggnee-Hoeclt-Fipejq Hx Patient Social History Tobacco Use?: Yes Tobacco type used: Cigarettes Smoking Status: Current Everyday Smoker Use of E-Cig and/or Vaping dev: No Substance use?: No Alcohol Use?: Yes Alcohol type: Beer Alcohol Frequency: Daily Pt feels they are or have been: No Immunizations Up To Date Influenza Vaccine Up-to-Date: No; Not Current First/Initial COVID19 Vaccinat: 06/14 Second COVID19 Vaccination Jose: 07/14 Third COVID19 Vaccination Date: 06/14 Past Medical History Surgery/Hospitalization HX: LEFT KNEE [facility] [facility] SALPINGO-OOPHORECTOMYCERVICAL SPINE SURGERY Surgeries: Yes Joint Replacement Respiratory: Yes COPD Cardiac: Yes Hypertension Neurological: No [employer] STORE MANAGER History: Hysterectomy, Menopausal Genitourinary: No Gastrointestinal: Yes Gastroesophageal Reflux Musculoskeletal: Yes (CHRONIC NECK PAIN-S/P C-SPINE SURGERY; LEFT TOTAL KNEE REPLACEMENT) Arthritis HEENT: No Psychosocial: No Integumentary: No Blood Disorders: No Family Medical History No Pertinent Family Hx SOCIAL HISTORY: -SMOKES > 1 PPD -ETOH--"4 BEERS" A DAY -DRUGS--"TRIED MARIJUANA" Physical Exam Vital Signs Vital Signs - First Documented 11/15/21 03:29 Temp 36.3 Pulse 96 Resp 20 B/P (MAP) 171/120 (137) Pulse Ox 96 O2 Delivery Room Air Capillary Refill : Height, Weight, BMI Height: '" Weight: lbs. oz. kg; 27.00 BMI Method: General Appearance: No Apparent Distress, WD/WN, Other (+ ODOR OF ETOH; DIRTY, UNKEMPT. DOES NOT APPEAR TO BE POST-ICTAL OR IN ANY DISCOMFORT OR DISTRESS. ) HEENT: PERRL/EOMI Neck: Normal Inspection Respiratory: Normal Breath Sounds Cardiovascular: Regular Rate, Rhythm, No Edema, No Murmur Gastrointestinal: Non Tender, Soft Back: Normal Inspection Extremity: Normal Inspection, No Pedal Edema Neurologic/Psychiatric: Alert, Oriented x3, No Motor/Sensory Deficits, still operator brandy II- XII Norm as Tested, Other (FLAT AFFECT. POOR MEMORY--NORMAL BASELINE FOR PT) Skin: Normal Color, Warm/Dry, Other (PT HAS MULTIPLE SCRATCHES AND BRUISES TO BOTH ARMS AND HANDS--STATES IT IS FROM HER DOG. ) Progress/Results/Core Measures Suspected Sepsis SIRS Temperature: Pulse: Respiratory Rate: Laboratory Tests 11/15/21 03:30: White Blood Count 3.6L Blood Pressure / Mean: Laboratory Tests 11/15/21 03:30: Creatinine 0.62, INR Comment 0.9, Platelet Count 113L, Total Bilirubin 1.4H Results/Orders Lab Results Laboratory Tests Test 11/15/21 03:30 11/15/21 03:59 11/15/21 04:55 11/15/21 04:57 Range/Units White Blood Count 3.6 L 4.3-11.0 10^3/uL Red Blood Count 3.68 L 3.80-5.11 10^6/uL Hemoglobin 13.2 11.5-16.0 g/dL Hematocrit 37 35-52 % Mean Corpuscular Volume 102 H 80-99 fL Mean Corpuscular Hemoglobin 36 H 25-34 pg Mean Corpuscular Hemoglobin Concent 35 32-36 g/dL Red Cell Distribution Width 11.7 10.0-14.5 % Platelet Count 113 L 130-400 10^3/uL Mean Platelet Volume 10.7 9.0-12.2 fL Immature Granulocyte % (Auto) 1 % Neutrophils (%) (Auto) 74 42-75 % Lymphocytes (%) (Auto) 16 12-44 % Monocytes (%) (Auto) 8 0-12 % Eosinophils (%) (Auto) 0 0-10 % Basophils (%) (Auto) 1 0-10 % Neutrophils # (Auto) 2.7 1.8-7.8 10^3/uL Lymphocytes # (Auto) 0.6 L 1.0-4.0 10^3/uL Monocytes # (Auto) 0.3 0.0-1.0 10^3/uL Eosinophils # (Auto) 0.0 0.0-0.3 10^3/uL Basophils # (Auto) 0.0 0.0-0.1 10^3/uL Immature Granulocyte # (Auto) 0.0 0.0-0.1 10^3/uL Percent Immature Platelet Fraction 6.3 0.0-7.6 % Erythrocyte Sedimentation Rate 2 0-20 MM/HR Prothrombin Time 12.8 12.2-14.7 SEC INR Comment 0.9 0.8-1.4 Activated Partial Thromboplast Time 23 L 24-35 SEC D-Dimer 1.63 H 0.00-0.49 UG/ML Sodium Level 137 135-145 MMOL/L Potassium Level 3.4 L 3.6-5.0 MMOL/L Chloride Level 97 L 98-107 MMOL/L Carbon Dioxide Level 25 21-32 MMOL/L Anion Gap 15 H 5-14 MMOL/L Blood Urea Nitrogen 6 L 7-18 MG/DL Creatinine 0.62 0.60-1.30 MG/DL Estimat Glomerular Filtration Rate 109 BUN/Creatinine Ratio 10 Glucose Level 172 H 70-105 MG/DL Calcium Level 8.9 8.5-10.1 MG/DL Corrected Calcium 9.1 8.5-10.1 MG/DL Magnesium Level 1.7 1.6-2.4 MG/DL Total Bilirubin 1.4 H 0.1-1.0 MG/DL Aspartate Amino Transf (AST/SGOT) 93 H 5-34 U/L Alanine Aminotransferase (ALT/SGPT) 36 0-55 U/L Alkaline Phosphatase 90 40-136 U/L Total Creatine Kinase 39 29-168 U/L Creatine Kinase MB 1.6 <6.6 NG/ML Myoglobin 125.1 H 10.0-92.0 NG/ML Troponin I < 0.028 <0.028 NG/ML C-Reactive Protein High Sensitivity 0.01 0.00-0.50 MG/DL B-Type Natriuretic Peptide 47.6 <100.0 PG/ML Total Protein 6.6 6.4-8.2 GM/DL Albumin 3.8 3.2-4.5 GM/DL Serum Alcohol < 10 <10 MG/DL Smear Scan Ammonia 26 11-32 UMOL/L Urine Color DARK YELLOW Urine Clarity CLEAR Urine pH 8.0 5-9 Urine Specific [place] 1.020 1.016-1.022 Urine Protein 1+ H NEGATIVE Urine Glucose (UA) NEGATIVE NEGATIVE Urine Ketones NEGATIVE NEGATIVE Urine Nitrite NEGATIVE NEGATIVE Urine Bilirubin NEGATIVE NEGATIVE Urine Urobilinogen 1.0 < = 1.0 MG/DL Urine Leukocyte Esterase NEGATIVE NEGATIVE Urine RBC (Auto) NEGATIVE NEGATIVE Urine RBC NONE /HPF Urine WBC NONE /HPF Urine Crystals NONE /LPF Urine Bacteria TRACE /HPF Urine Casts NONE /LPF Urine Mucus NEGATIVE /LPF Urine Culture Indicated NO Urine Opiates Screen NEGATIVE NEGATIVE Urine Oxycodone Screen NEGATIVE NEGATIVE Urine Methadone Screen NEGATIVE NEGATIVE Urine Propoxyphene Screen NEGATIVE NEGATIVE Urine Barbiturates Screen NEGATIVE NEGATIVE Ur Tricyclic Antidepressants Screen NEGATIVE NEGATIVE Urine Phencyclidine Screen NEGATIVE NEGATIVE Urine Amphetamines Screen NEGATIVE NEGATIVE Urine Methamphetamines Screen NEGATIVE NEGATIVE Urine Benzodiazepines Screen NEGATIVE NEGATIVE Urine Cocaine Screen NEGATIVE NEGATIVE Urine Cannabinoids Screen NEGATIVE NEGATIVE Influenza Type A (RT-PCR) Not Detected Not Detecte Influenza Type B (RT-PCR) Not Detected Not Detecte SARS-CoV-2 RNA (RT-PCR) Not Detected Not Detecte My Orders Orders - RICARDO TRAN DO Ed Iv/Invasive Line Start (11/15/21 03:38) Ekg Tracing (11/15/21 03:38) Monitor-Rhythm Ecg Trace Only (11/15/21 03:38) Ct Head Wo-R/O Stroke (11/15/21 03:38) Chest 1 View, Ap/Pa Only (11/15/21 03:38) Alcohol (11/15/21 03:38) Bnp [place] (11/15/21 03:38) Cbc With Automated Diff (11/15/21 03:38) Comprehensive Metabolic Panel (11/15/21 03:38) Creatine Kinase (11/15/21 03:38) Creatine Kinase Mb (11/15/21 03:38) Hs C Reactive Protein (11/15/21 03:38) Fibrin Degradation Products (11/15/21 03:38) Drug Screen Stat (Urine) (11/15/21 03:38) Magnesium (11/15/21 03:38) Protime With Inr (11/15/21 03:38) Partial Thromboplastin Time (11/15/21 03:38) Ua Culture If Indicated (11/15/21 03:38) Erythrocyte Sedimentation Rate (11/15/21 03:38) Myoglobin Serum (11/15/21 03:38) Troponin I Kat (11/15/21 03:38) Covid 19 Inhouse Test (11/15/21 03:38) Influenza A And B By Pcr (11/15/21 03:38) Isolation Central Supply Req (11/15/21 03:38) Ammonia (11/15/21 03:45) Hydralazine Injection (Apresoline Inject (11/15/21 05:30) Medications Given in ED Vital Signs/I&O 11/15/21 11/15/21 03:29 05:42 Temp 36.3 Pulse 96 91 Resp 20 18 B/P (MAP) 171/120 (137) 166/115 Pulse Ox 96 97 O2 Delivery Room Air Capillary Refill : Progress Note : Progress Note PT HAS NO SYMPTOMS OF ANY KIND FOR ENTIRE ER STAY NO DYSPNEA NO TACHYCARDIA NO HYPOXIA 0535--LITERALLY PT IS RECEIVING IV HYDRALAZINE, PT STATES SHE IS LEAVING--SIGNING OUT AMA. BROTHER IS HERE ALREADY TO PICK HER UP. CT ANGIOGRAMS OF HEAD/NECK AND CHEST/ABDOMEN/PELVIS HAVE BEEN ORDERED, AND PT REFUSES RISKS / BENEFITS EXPLAINED. AMA PAPERS SIGNED ECG Initial ECG Impression Date: Nov 15, 2021 Initial ECG Impression Time: 03:40 Initial ECG Rate: 100 Initial ECG Rhythm: Normal Sinus Diagnostic Imaging Comments CXR--NO ACUTE PROCESS, PENDING RADIOLOGIST REVIEW CT HEAD--NO ACUTE PROCESS--NO HEMORRHAGE, MASS EFFECT, HYDROCEPHALUS OR EVIDENCE OF ACUTE INFARCT. ADVANCED CEREBRAL VOLUME LOSS, FLUID IN RIGHT MASTOID AIR CELLS--PER [facility] VIA FAX AT 1301 Reviewed: Reviewed by Me Departure Impression Primary Impression: Left against medical advice Disposition: 07 AGAINST MEDICAL ADVICE Condition: Against Medical Advice Departure-Patient Inst. Referrals: NO,LOCAL PHYSICIAN (PCP/Family) Primary Care Physician RICARDO TRAN DO Nov 15, 2021 03:49
[2021-11-15 03:50] LABS: EOSINOPHILS % (AUTO) 0 % (0-10); HEMOGLOBIN 13.2 g/dL (11.5-16.0)
[2021-11-15 03:52] LABS: BASOPHILS % (AUTO) 1 % (0-10); HEMATOCRIT 37 % (35-52); LYMPHOCYTES # (AUTO) 0.6 10^3/uL (1.0-4.0); LYMPHOCYTES % (AUTO) 16 % (12-44); MEAN CORPUSCULAR HEMOGLOBIN 36 pg (25-34); MEAN CORPUSCULAR HGB CONC 35 g/dL (32-36); MEAN CORPUSCULAR VOLUME 102 fL (80-99); MEAN PLATELET VOLUME 10.7 fL (9.0-12.2); MONOCYTES # (AUTO) 0.3 10^3/uL (0.0-1.0); MONOCYTES % (AUTO) 8 % (0-12); NEUTROPHILS # (AUTO) 2.7 10^3/uL (1.8-7.8); NEUTROPHILS % (AUTO) 74 % (42-75); PLATELET COUNT 113 10^3/uL (130-400); WHITE BLOOD COUNT 3.6 10^3/uL (4.3-11.0)
[2021-11-15 03:53] LABS: ALBUMIN 3.8 GM/DL (3.2-4.5); CHLORIDE 97 MMOL/L (98-107); POTASSIUM 3.4 MMOL/L (3.6-5.0); SODIUM 137 MMOL/L (135-145)
[2021-11-15 03:54] LABS: CALCIUM 8.9 MG/DL (8.5-10.1)
[2021-11-15 03:55] LABS: GLUCOSE 172 MG/DL (70-105); TOTAL PROTEIN 6.6 GM/DL (6.4-8.2)
[2021-11-15 03:56] LABS: CARBON DIOXIDE 25 MMOL/L (21-32)
[2021-11-15 03:57] LABS: BILIRUBIN,TOTAL 1.4 MG/DL (0.1-1.0)
[2021-11-15 03:59] LABS: ALKALINE PHOSPHATASE 90 U/L (40-136); CREATININE SERUM 0.62 MG/DL (0.60-1.30); GFR ESTIMATED 109
[2021-11-15 04:00] LABS: BUN/CREATININE RATIO 10
[2021-11-15 04:02] LABS: ALANINE AMINOTRANSFERASE 36 U/L (0-55); CREATINE KINASE 39 U/L (29-168); MAGNESIUM 1.7 MG/DL (1.6-2.4)
[2021-11-15 04:09] LABS: CREATINE KINASE MB 1.6 NG/ML (<6.6)
[2021-11-15 04:17] LABS: FIBRIN DEGRADATION PRODUCTS 1.63 UG/ML (0.00-0.49); INR 0.9 (0.8-1.4); PROTHROMBIN TIME PATIENT 12.8 SEC (12.2-14.7)
[2021-11-15 04:18] LABS: ERYTHROCYTE SEDIMENTATION RATE 2 MM/HR (0-20)
[2021-11-15 05:14] LABS: BILIRUBIN,URINE NEGATIVE (NEGATIVE); CLARITY,URINE CLEAR; COLOR,URINE DARK YELLOW; GLUCOSE, URINE (UA) NEGATIVE (NEGATIVE); KETONES,URINE NEGATIVE (NEGATIVE); LEUKOCYTE ESTERASE ,URINE NEGATIVE (NEGATIVE); NITRITE,URINE NEGATIVE (NEGATIVE); PROTEIN,URINE 1+ (NEGATIVE)
[2021-11-15 05:23] LABS: BACTERIA,URINE TRACE /HPF
[2021-11-15] MEDS ORDERED: hydrALAZINE (APESOLINE) 20 MG/ML VIAL IV ONE (05:30)
[2021-11-15 05:32] LABS: AMPHETAMINE SCREEN, URINE NEGATIVE (NEGATIVE); BARBITURATE SCREEN URINE NEGATIVE (NEGATIVE); BENZODIAZEPINES SCREEN URINE NEGATIVE (NEGATIVE); CANNABINOID SCREEN, URINE NEGATIVE (NEGATIVE); COCAINE SCREEN URINE NEGATIVE (NEGATIVE); METHADONE STAT NEGATIVE (NEGATIVE); OPIATE SCREEN URINE NEGATIVE (NEGATIVE); OXYCODONE STAT NEGATIVE (NEGATIVE); PROPOXYPHENE STAT NEGATIVE (NEGATIVE); TRICYCLIC ANTIDEPRESSANTS SCRE NEGATIVE (NEGATIVE)
[2021-11-15 05:42] VITALS: BP 166/115
--- NOTE | 2021-11-15 06:01 | Diagnostic Imaging Report ---
PROCEDURE: CT head wo r/o stroke. TECHNIQUE: Multiple contiguous axial images were obtained through the brain without the use of intravenous contrast. Auto Exposure Controls were utilized during the CT exam to meet ALARA standards for radiation dose reduction. INDICATION: Syncope. FINDINGS: There is prominence of the ventricles and sulci out of proportion to age. There is no hydrocephalus. There is no midline shift. There is no mass, hemorrhage or extra-axial fluid collection. There is no evidence of an acute infarct. The calvarium is intact. Sinuses are clear. There is fluid in the right mastoid air cells. IMPRESSION: No acute intracranial abnormality. There is cerebral volume loss out of proportion to age. If high clinical concern for an acute CVA persists, further evaluation with MRI should be considered. Right mastoid effusion Dictated by: Dictated on workstation # [id number]
--- NOTE | 2021-11-15 06:36 | Diagnostic Imaging Report ---
INDICATION: Syncope. Comparison is made with prior exam of 12/17/2020. FINDINGS: The heart size, mediastinal configuration, and pulmonary vascularity are within normal limits. There is no pleural effusion, pneumothorax, or pneumonia. The osseous structures are unremarkable. IMPRESSION: No acute cardiopulmonary abnormality. Dictated by: Dictated on workstation # [id number]
== END 2021-11-15 05:42 | disposition home or self-care (01) ==
LOC: EDUNIT# 03:25 → ER 03:26
DX: R53.81 Other malaise (principal); F17.210 Nicotine dependence, cigarettes, uncomplicated; Z20.822 Contact with and (suspected) exposure to COVID-19
CPT/HCPCS: 70450; 71045; 80053; 80306; 81000; 82140; 82550; 82553; 83735; 83874; 83880; 84484; 85025; 85379; 85610; 85652; 85730; 86141; 87636; 93005; 93041; 99284; G0480; 36415; 80320

== ENCOUNTER 2022-05-01 05:36 | Outpatient (CLI) | payer MEDICARE, MEDICAID ==
[~2022-05-01] VITALS: Ht 167.6 cm; Wt 73.0 kg
== END 2022-05-01 16:42 | disposition home or self-care (01) ==
LOC: PREOP 05:36
PROVIDERS: ATTEND Surgery
DX: Z01.818 Encounter for other preprocedural examination (principal)

== ENCOUNTER 2022-06-16 10:14 | Emergency (ER) | payer MEDICARE, MEDICAID ==
[~2022-06-16] VITALS: Ht 167 cm; Wt 68.0 kg
[2022-06-16 10:37] LABS: BASOPHILS # (AUTO) 0.1 10^3/uL (0.0-0.1); BASOPHILS % (AUTO) 2 % (0-10); EOSINOPHILS # (AUTO) 0.1 10^3/uL (0.0-0.3); EOSINOPHILS % (AUTO) 2 % (0-10); HEMATOCRIT 36 % (35-52); HEMOGLOBIN 12.5 g/dL (11.5-16.0); LYMPHOCYTES # (AUTO) 1.2 10^3/uL (1.0-4.0); LYMPHOCYTES % (AUTO) 42 % (12-44); MEAN CORPUSCULAR HEMOGLOBIN 37 pg (25-34); MEAN CORPUSCULAR HGB CONC 34 g/dL (32-36); MEAN CORPUSCULAR VOLUME 107 fL (80-99); MEAN PLATELET VOLUME 9.5 fL (9.0-12.2); MONOCYTES # (AUTO) 0.4 10^3/uL (0.0-1.0); MONOCYTES % (AUTO) 14 % (0-12); NEUTROPHILS # (AUTO) 1.1 10^3/uL (1.8-7.8); NEUTROPHILS % (AUTO) 39 % (42-75); PLATELET COUNT 160 10^3/uL (130-400); WHITE BLOOD COUNT 2.9 10^3/uL (4.3-11.0)
--- NOTE | 2022-06-16 10:38 | ED General ---
General Chief Complaint: General Problems/Pain Stated Complaint: COLD SYMPTOMS Nursing Triage Note: PT ARRIVED PER [facility]. PT ALERT AND ORIENTED X3. PT CO OF COUGH, COLD CHILLS, CONSTIPATION. PT HAS SL IN L AC #20 W NS APPROX 500CC INFUSED. PT STATES HAS RECENTLY WEANED SELF OFF OF ALL PO MEDCIATIONS. Source of Information: Patient Exam Limitations: No Limitations History of Present Illness Date Seen by Provider: Jun 16, 2022 Time Seen by Provider: 10:19 Initial Comments This 52-year-old woman presents to the emergency room via [facility] with complaints of being ill for about 3 days with productive cough. She has an additional complaint of no bowel movement for about 3 days resulting in abdominal discomfort and bloating. She has taken a laxative but has not had results. EMS reports some significant emotional lability. She reports daily alcohol consumption of 6 beers. She does appear to have alcohol on board this morning. She reports chills. She has had some vomiting as well. She reports no prescription medications. She does take Tylenol and ibuprofen for pain. She reports her last alcohol consumption was last night. Dr. Lew Lyle is her primary care provider. Allergies and Home Medications Allergies Coded Allergies: Sulfa (Sulfonamide Antibiotics) (Verified Allergy, Unknown, Angioedema, 12/18/20) Patient Home Medication List Home Medication List Reviewed: Yes No Active Prescriptions or Reported Meds Review of Systems Review of Systems Constitutional: see HPI EENTM: no symptoms reported Respiratory: see HPI Cardiovascular: no symptoms reported Gastrointestinal: see HPI Genitourinary: no symptoms reported : No Musculoskeletal: no symptoms reported Skin: no symptoms reported Psychiatric/Neurological: See HPI Hematologic/Lymphatic: No Symptoms Reported Past Milukwd-Urzwsf-Mfanrw Hx Patient Social History Tobacco Use?: Yes Tobacco type used: Cigarettes Smoking Status: Current Everyday Smoker Substance use?: No Alcohol Use?: Yes Alcohol type: Beer Alcohol Frequency: Daily (Reports 6 beers daily) Pt feels they are or have been: No Immunizations Up To Date Tetanus Booster (TDap): Unknown Influenza Vaccine Up-to-Date: No; Not Current First/Initial COVID19 Vaccinat: 06/14 Second COVID19 Vaccination Jose: 07/14 Third COVID19 Vaccination Date: 06/14 Past Medical History Surgery/Hospitalization HX: LEFT KN[facility] [facility] SALPINGO-OOPHORECTOMYCERVICAL SPINE SURGERY Surgeries: Yes (BACK/NECK) Hysterectomy, Joint Replacement, Oophorectomy, Orthopedic (Cervical spine surgery, left knee replaced, back) Respiratory: Yes COPD Cardiac: Yes Hypertension Neurological: No : No COIL WINDER STRAP History: Hysterectomy, Menopausal Genitourinary: No Gastrointestinal: Yes Gastroesophageal Reflux Musculoskeletal: Yes (CHRONIC NECK PAIN-S/P C-SPINE SURGERY; LEFT TOTAL KNEE REPLACEMENT) Arthritis Endocrine: Yes (Hyperglycemia) HEENT: No Cancer: No Psychosocial: Yes (Alcohol dependence) Integumentary: No Blood Disorders: No Family Medical History Colon cancer No Pertinent Family Hx SOCIAL HISTORY: -SMOKES > 1 PPD -ETOH--"4 BEERS" A DAY -DRUGS--"TRIED MARIJUANA" Physical Exam Vital Signs Vital Signs - First Documented 06/16/22 10:15 Temp 36.7 Pulse 101 Resp 18 B/P (MAP) 125/96 (106) Pulse Ox 91 O2 Delivery Room Air Capillary Refill : Height, Weight, BMI Height: '" Weight: lbs. oz. kg; 24.00 BMI Method: General Appearance: WD/WN, Mild Distress HEENT: PERRL/EOMI, Normal ENT Inspection Neck: Normal Inspection Respiratory: Lungs Clear, Normal Breath Sounds, No Accessory Muscle Use, Other (Wet sounding cough) Cardiovascular: Regular Rate, Rhythm, No Edema, No Murmur Gastrointestinal: Normal Bowel Sounds, Soft; No Distended; Tenderness (Lower abdomen) Extremity: Normal Inspection, No Pedal Edema Neurologic/Psychiatric: Alert, Oriented x3, No Motor/Sensory Deficits, Normal Mood/Affect Skin: Normal Color, Warm/Dry Progress/Results/Core Measures Suspected Sepsis SIRS Temperature: Pulse: 101 Respiratory Rate: 18 Laboratory Tests 06/16/22 10:22: White Blood Count 2.9L Blood Pressure 125 /96 Mean: 106 Laboratory Tests 06/16/22 10:22: Creatinine 0.46L, Platelet Count 160, Total Bilirubin 0.4 Results/Orders Lab Results Laboratory Tests Test 06/16/22 10:21 06/16/22 10:22 06/16/22 11:06 Range/Units Influenza Type A (RT-PCR) Not Detected Not Detecte Influenza Type B (RT-PCR) Not Detected Not Detecte SARS-CoV-2 RNA (RT-PCR) Not Detected Not Detecte White Blood Count 2.9 L 4.3-11.0 10^3/uL Red Blood Count 3.40 L 3.80-5.11 10^6/uL Hemoglobin 12.5 11.5-16.0 g/dL Hematocrit 36 35-52 % Mean Corpuscular Volume 107 H 80-99 fL Mean Corpuscular Hemoglobin 37 H 25-34 pg Mean Corpuscular Hemoglobin Concent 34 32-36 g/dL Red Cell Distribution Width 12.0 10.0-14.5 % Platelet Count 160 130-400 10^3/uL Mean Platelet Volume 9.5 9.0-12.2 fL Immature Granulocyte % (Auto) 1 % Neutrophils (%) (Auto) 39 L 42-75 % Lymphocytes (%) (Auto) 42 12-44 % Monocytes (%) (Auto) 14 H 0-12 % Eosinophils (%) (Auto) 2 0-10 % Basophils (%) (Auto) 2 0-10 % Neutrophils # (Auto) 1.1 L 1.8-7.8 10^3/uL Lymphocytes # (Auto) 1.2 1.0-4.0 10^3/uL Monocytes # (Auto) 0.4 0.0-1.0 10^3/uL Eosinophils # (Auto) 0.1 0.0-0.3 10^3/uL Basophils # (Auto) 0.1 0.0-0.1 10^3/uL Immature Granulocyte # (Auto) 0.0 0.0-0.1 10^3/uL Sodium Level 145 135-145 MMOL/L Potassium Level 3.5 L 3.6-5.0 MMOL/L Chloride Level 109 H 98-107 MMOL/L Carbon Dioxide Level 20 L 21-32 MMOL/L Anion Gap 16 H 5-14 MMOL/L Blood Urea Nitrogen 6 L 7-18 MG/DL Creatinine 0.46 L 0.60-1.30 MG/DL Estimat Glomerular Filtration Rate 117 BUN/Creatinine Ratio 13 Glucose Level 66 L 70-105 MG/DL Calcium Level 8.1 L 8.5-10.1 MG/DL Corrected Calcium 8.3 L 8.5-10.1 MG/DL Magnesium Level 1.8 1.6-2.4 MG/DL Total Bilirubin 0.4 0.1-1.0 MG/DL Aspartate Amino Transf (AST/SGOT) 122 H 5-34 U/L Alanine Aminotransferase (ALT/SGPT) 44 0-55 U/L Alkaline Phosphatase 93 40-136 U/L C-Reactive Protein High Sensitivity 0.01 0.00-0.50 MG/DL Total Protein 6.1 L 6.4-8.2 GM/DL Albumin 3.7 3.2-4.5 GM/DL Lipase 24 8-78 U/L Serum Alcohol 386 *H <10 MG/DL Urine Color YELLOW Urine Clarity CLEAR Urine pH 6.0 5-9 Urine Specific [place] 1.010 L 1.016-1.022 Urine Protein NEGATIVE NEGATIVE Urine Glucose (UA) NEGATIVE NEGATIVE Urine Ketones NEGATIVE NEGATIVE Urine Nitrite NEGATIVE NEGATIVE Urine Bilirubin NEGATIVE NEGATIVE Urine Urobilinogen 0.2 < = 1.0 MG/DL Urine Leukocyte Esterase NEGATIVE NEGATIVE Urine RBC (Auto) NEGATIVE NEGATIVE Urine RBC NONE /HPF Urine WBC NONE /HPF Urine Squamous Epithelial Cells 2-5 /HPF Urine Crystals NONE /LPF Urine Bacteria NEGATIVE /HPF Urine Casts NONE /LPF Urine Mucus NEGATIVE /LPF Urine Culture Indicated NO My Orders Orders - TERRI CRUZ MD Covid 19 Inhouse Test (06/16/22 10:31) Influenza A And B By Pcr (06/16/22 10:31) Alcohol (06/16/22 10:32) Cbc With Automated Diff (06/16/22 10:32) Comprehensive Metabolic Panel (06/16/22 10:32) Hs C Reactive Protein (06/16/22 10:32) Lipase (06/16/22 10:32) Magnesium (06/16/22 10:32) Ua Culture If Indicated (06/16/22 10:32) Vital Signs/I&O 06/16/22 06/16/22 10:15 12:08 Temp 36.7 Pulse 101 88 Resp 18 20 B/P (MAP) 125/96 (106) 130/91 Pulse Ox 91 96 O2 Delivery Room Air Room Air Capillary Refill : Blood Pressure Mean: 106 Progress Note : Progress Note Patient was interviewed and examined upon arrival. Report was received from EMS. Labs were obtained, reviewed, and interpreted in their entirety by me. Influenza and COVID swabs were negative. Blood sugar was noted to be 66. Leukopenia was noted and determined to be chronic after reviewing history of CBCs. There were no other critical or gross abnormalities with the CBC, CMP, lipase, CRP, or urinalysis. Blood alcohol level was quite elevated at 386. After labs were reviewed, I provided the patient an update and prepared to obtain chest and abdominal x-rays. Patient was up and walking about her room getting dressed. She insisted on leaving AGAINST MEDICAL ADVICE. I explained to her that I would like to ensure she does not have a bowel obstruction or other issue that could be identified by x-rays. She declined further care and left AGAINST MEDICAL ADVICE. She was alert and walking about safely and independently in the room prior to leaving. Departure Impression Primary Impression: Abdominal pain Qualified Codes: R10.30 - Lower abdominal pain, unspecified Additional Impressions: Productive cough Hypoglycemia Leukopenia Qualified Codes: D72.819 - Decreased white blood cell count, unspecified Alcohol dependence Qualified Codes: F10.229 - Alcohol dependence with intoxication, unspecified Alcohol abuse Left against medical advice Disposition: 07 AGAINST MEDICAL ADVICE Condition: Against Medical Advice Departure-Patient Inst. Referrals: NO,LOCAL PHYSICIAN (PCP/Family) Primary Care Physician Scripts No Active Prescriptions or Reported Meds Copy Copies To 1: LEW LYLE MD, JOSHUA T MD Jun 16, 2022 10:38
[2022-06-16 10:46] LABS: ALBUMIN 3.7 GM/DL (3.2-4.5); POTASSIUM 3.5 MMOL/L (3.6-5.0)
[2022-06-16 10:47] LABS: CALCIUM 8.1 MG/DL (8.5-10.1)
[2022-06-16 10:48] LABS: TOTAL PROTEIN 6.1 GM/DL (6.4-8.2)
[2022-06-16 10:50] LABS: BILIRUBIN,TOTAL 0.4 MG/DL (0.1-1.0)
[2022-06-16 10:52] LABS: CREATININE SERUM 0.46 MG/DL (0.60-1.30)
[2022-06-16 10:55] LABS: MAGNESIUM 1.8 MG/DL (1.6-2.4)
[2022-06-16 11:15] LABS: BILIRUBIN,URINE NEGATIVE (NEGATIVE); CLARITY,URINE CLEAR; COLOR,URINE YELLOW; GLUCOSE, URINE (UA) NEGATIVE (NEGATIVE); KETONES,URINE NEGATIVE (NEGATIVE); LEUKOCYTE ESTERASE ,URINE NEGATIVE (NEGATIVE); NITRITE,URINE NEGATIVE (NEGATIVE); PROTEIN,URINE NEGATIVE (NEGATIVE)
[2022-06-16 11:23] LABS: BACTERIA,URINE NEGATIVE /HPF
[2022-06-16 12:08] VITALS: BP 130/91
== END 2022-06-16 12:06 | disposition left against medical advice (07) ==
LOC: EDUNIT# 10:14 → ER 10:15
DX: R05.9 Cough, unspecified (principal); R68.83 Chills (without fever); F17.210 Nicotine dependence, cigarettes, uncomplicated; Z20.822 Contact with and (suspected) exposure to COVID-19
CPT/HCPCS: 36415; 80053; 80320; 81000; 83690; 83735; 85025; 86141; 87636

== ENCOUNTER 2022-12-27 18:04 | Emergency (ER) | payer MEDICARE, MEDICAID ==
[~2022-12-27] VITALS: Ht 170 cm; Wt 82.0 kg
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
[2022-12-27] MEDS ORDERED: LACTATED RINGERS 1,000 ML 1,000 ML IV ONE (18:30)
[2022-12-27 18:33] LABS: BASOPHILS % (AUTO) 1 % (0-10); EOSINOPHILS # (AUTO) 0.1 10^3/uL (0.0-0.3); EOSINOPHILS % (AUTO) 1 % (0-10); HEMATOCRIT 34 % (35-52); HEMOGLOBIN 12.2 g/dL (11.5-16.0); LYMPHOCYTES # (AUTO) 1.4 10^3/uL (1.0-4.0); LYMPHOCYTES % (AUTO) 25 % (12-44); MEAN CORPUSCULAR HEMOGLOBIN 38 pg (25-34); MEAN CORPUSCULAR HGB CONC 36 g/dL (32-36); MEAN CORPUSCULAR VOLUME 105 fL (80-99); MEAN PLATELET VOLUME 10.8 fL (9.0-12.2); MONOCYTES # (AUTO) 0.7 10^3/uL (0.0-1.0); MONOCYTES % (AUTO) 13 % (0-12); NEUTROPHILS # (AUTO) 3.2 10^3/uL (1.8-7.8); NEUTROPHILS % (AUTO) 60 % (42-75); PLATELET COUNT 174 10^3/uL (130-400); WHITE BLOOD COUNT 5.4 10^3/uL (4.3-11.0)
[2022-12-27 18:44] LABS: ALBUMIN 3.5 GM/DL (3.2-4.5); POTASSIUM 3.1 MMOL/L (3.6-5.0)
[2022-12-27 18:45] LABS: CALCIUM 8.6 MG/DL (8.5-10.1)
[2022-12-27 18:47] LABS: TOTAL PROTEIN 6.4 GM/DL (6.4-8.2)
[2022-12-27 18:48] LABS: BILIRUBIN,TOTAL 0.5 MG/DL (0.1-1.0)
[2022-12-27 18:50] LABS: CREATININE SERUM 0.56 MG/DL (0.60-1.30)
[2022-12-27] MEDS ORDERED: NS 100 ML (IVPB) BAG IV ONE (19:30)
[2022-12-27] MEDS ORDERED: CATHETER FLUSH 10 ML SYR IV PRN (19:30)
[2022-12-27] MEDS ORDERED: HOLD METFORMIN - RECEIVED CONTRAST 20 ML VIAL IV SCH (19:30)
[2022-12-27] MEDS ORDERED: IOHEXOL 350 MG/ML 100 ML (OMNIPAQUE 350) VIAL IV ONE (19:30)
--- NOTE | 2022-12-27 19:46 | Diagnostic Imaging Report ---
PROCEDURE: CT head and CT cervical spine without contrast. TECHNIQUE: Multiple contiguous axial images were obtained through the brain and cervical spine without the use of intravenous contrast. Sagittal and coronal reformations through the cervical spine were then performed. Auto Exposure Controls were utilized during the CT exam to meet ALARA standards for radiation dose reduction. INDICATION: Fall. Head and neck pain. COMPARISON: 11/15/2021. FINDINGS: CT HEAD: No large acute territorial ischemia, mass, or hemorrhage. No midline shift or mass effect. Decreased attenuation is seen in the periventricular and subcortical white matter. The ventricles and cortical sulci are prominent. The basilar cisterns are patent and unremarkable. The calvarium is intact. The visualized paranasal sinuses are clear. CT CERVICAL SPINE: Acute fracture is seen involving the anterior inferior aspect of the C2 vertebral body. There is also a fracture involving the anterior aspect of the C3 vertebral body. ACDF changes are visualized from C4 to C7. No evidence of hardware fracture. There is incomplete osseous fusion across the C6-C7 level. The craniocervical junction is intact. No high density material is seen within the spinal canal. The soft tissues of the neck are unremarkable. The included lungs are clear. IMPRESSION: 1. No hemorrhage or focal intra-axial mass. No CT evidence of large acute territorial ischemia. 2. Acute fractures involving the anterior inferior aspect of the C2 vertebral body and anterior aspect of the C3 vertebral body. No unstable fractures are identified in the cervical spine. 3. ACDF changes from C4 to C7. No hardware fracture. There is possible pseudoarthrosis at the C6-C7 level. 4. Findings were discussed with Dr. Quintero at 7:40 PM on 12/27/[address] Schroeder. Dictated by: Dictated on workstation # [id number]
--- NOTE | 2022-12-27 19:47 | Diagnostic Imaging Report ---
PROCEDURE: CT thoracic and lumbar spine without contrast. TECHNIQUE: Multiple contiguous axial images were obtained through the thoracic and lumbar spine without the use of intravenous contrast. Sagittal and coronal reformations were then performed. All CT scans use one or more of the following dose optimizing techniques: automated exposure control, MA and/or KvP adjustment based on a patient size and exam type, or iterative reconstruction. INDICATION: Fall. Diffuse mid and lower back pain. COMPARISON: None. FINDINGS: There is age indeterminate height loss involving the T3 through T5 vertebral bodies. No evidence of retropulsion. No suspicious focal osseous lesions. Prominent Schmorl's node is seen in the superior endplate of T12. Limbus vertebrae is noted at L4. No fracture in the lumbar spine. No high density material is seen within the spinal canal of the thoracic and lumbar spine. The paraspinal soft tissues are unremarkable. IMPRESSION: 1. Age-indeterminate height loss involving the T3 through T5 vertebral bodies. Recommend correlation with point tenderness and, if indicated, MRI of the thoracic spine to further evaluate. 2. No acute fracture in the lumbar spine. 3. Findings were discussed with Dr. Quintero at 7:40 PM on 12/27/[address] Schroeder. Dictated by: Dictated on workstation # [id number]
--- NOTE | 2022-12-27 19:52 | Diagnostic Imaging Report ---
EXAMINATION: CT chest, abdomen and pelvis with intravenous contrast. TECHNIQUE: Multiple contiguous axial images were obtained through the chest, abdomen and pelvis after the uneventful administration of intravenous contrast. All CT scans use one or more of the following dose optimizing techniques: automated exposure control, MA and/or KvP adjustment based on patient size and exam type or iterative reconstruction. HISTORY: Fall. Diffuse torso pain. COMPARISON: None available. FINDINGS: CT CHEST: The heart size is within normal limits. No pericardial effusion is present. There is no mediastinal, hilar, or axillary lymphadenopathy. The lungs demonstrate no pulmonary nodules or masses. There are no focal areas of consolidation. No central endobronchial obstructing lesions are identified. There are no pleural effusions or pneumothorax. CT ABDOMEN AND PELVIS: The liver, spleen, pancreas, adrenal glands, and kidneys have a normal appearance. The gallbladder is mildly distended. No gallstones are seen. The portal vein is patent. There is no pathologically enlarged mesenteric or retroperitoneal adenopathy. The bowel loops are nondilated. The There is no free fluid or free air. The urinary bladder is nondistended. There is no free air, loculated collection, or adenopathy in the pelvis. Please see the separate dictated report of the CT thoracic and lumbar spine performed this same date for osseous findings. IMPRESSION: No evidence of acute injury in the chest, abdomen, and pelvis. No free fluid or free air. Dictated by: Dictated on workstation # [id number]
[2022-12-27] MEDS ORDERED: LIDOCAINE UROJET 2% GEL 10 ML PKG TOP ONE (20:00)
--- NOTE | 2022-12-27 20:17 | Diagnostic Imaging Report ---
EXAMINATION: Chest, 1 view. HISTORY: Chest pain after fall. COMPARISON: 11/13/2021. FINDINGS: Heart size and pulmonary vasculature are normal. The lungs are clear without consolidation, pleural effusion, or pneumothorax. There are multiple bilateral rib deformities. These have a chronic appearance and were seen on prior radiograph of 11/15/2021. No new fracture is identified although the exam was not tailored for evaluation of rib fractures. IMPRESSION: 1. No acute radiographic abnormality in the chest. 2. Multiple chronic bilateral rib fractures. Dedicated left rib radiographs or CT of the chest may be helpful for evaluation of acute fracture given the numerous multilevel chronic fractures. Dictated by: Dictated on workstation # [id number]
--- NOTE | 2022-12-27 20:23 | Diagnostic Imaging Report ---
EXAMINATION: Left femur radiograph. EXAM DATE: 12/27/2022 7:56 PM. COMPARISON: None available. HISTORY: Leg pain. TECHNIQUE: 4 views. FINDINGS: There is no acute fracture, dislocation, or destructive osseous process. Surgical changes from left knee arthroplasty. Mild joint space narrowing of the left hip. The soft tissues are normal. IMPRESSION: No acute osseous abnormality. Dictated by: Dictated on workstation # [id number]
--- NOTE | 2022-12-27 20:24 | Diagnostic Imaging Report ---
EXAMINATION: Left knee radiographs. EXAM DATE: 12/27/2022 7:56 PM. COMPARISON: None available. HISTORY: Left knee pain. TECHNIQUE: 3 views. FINDINGS: There is no acute fracture, dislocation, or destructive osseous process. 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 The soft tissues are normal. IMPRESSION: No acute osseous abnormality. Dictated by: Dictated on workstation # [id number]
--- NOTE | 2022-12-27 20:25 | Diagnostic Imaging Report ---
EXAMINATION: Pelvis and left hip radiographs. EXAM DATE: 12/27/2022 7:56 PM. COMPARISON: None available. HISTORY: Pelvic, hip pain. TECHNIQUE: 3 views. FINDINGS: There is a focus of cortical irregularity along the inferior left pubic ramus. No other acute fracture, dislocation, or destructive osseous process. Mild bilateral hip joint space narrowing. The soft tissues are normal. IMPRESSION: Possible nondisplaced fracture of the left inferior pubic ramus. Dictated by: Dictated on workstation # [id number]
[2022-12-27 20:26] LABS: COLOR,URINE YELLOW
--- NOTE | 2022-12-27 20:26 | Diagnostic Imaging Report ---
EXAMINATION: Left tibia and fibula radiographs. EXAM DATE: 12/27/2022 7:56 PM. COMPARISON: None available. HISTORY: Leg pain. TECHNIQUE: 2 views. FINDINGS: There is no acute fracture, dislocation, or destructive osseous process. 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 The soft tissues are normal. IMPRESSION: No acute osseous abnormality. Dictated by: Dictated on workstation # [id number]
[2022-12-27 20:27] LABS: BACTERIA,URINE NEGATIVE /HPF; BILIRUBIN,URINE NEGATIVE (NEGATIVE); CLARITY,URINE CLEAR; GLUCOSE, URINE (UA) NEGATIVE (NEGATIVE); KETONES,URINE NEGATIVE (NEGATIVE); LEUKOCYTE ESTERASE ,URINE NEGATIVE (NEGATIVE); NITRITE,URINE NEGATIVE (NEGATIVE); PROTEIN,URINE NEGATIVE (NEGATIVE)
[2022-12-27] MEDS ORDERED: fentaNYL INJECTION 100 MCG/2 ML VIAL IVP ONE (20:30)
[2022-12-27] MEDS ORDERED: NICOTINE 21 MG PATCH TD ONE (20:30)
[2022-12-27 20:47] LABS: AMPHETAMINE SCREEN, URINE NEGATIVE (NEGATIVE); BARBITURATE SCREEN URINE NEGATIVE (NEGATIVE); CANNABINOID SCREEN, URINE NEGATIVE (NEGATIVE); COCAINE SCREEN URINE NEGATIVE (NEGATIVE); METHADONE STAT NEGATIVE (NEGATIVE); OPIATE SCREEN URINE NEGATIVE (NEGATIVE); OXYCODONE STAT NEGATIVE (NEGATIVE); TRICYCLIC ANTIDEPRESSANTS SCRE NEGATIVE (NEGATIVE)
[2022-12-27 21:32] VITALS: BP 111/84
== END 2022-12-27 21:54 | disposition short-term general hospital (02) ==
LOC: EDUNIT# 18:04 → ER 18:06
DX: S12.200A Unspecified displaced fracture of third cervical vertebra, initial encounter for closed fracture (principal); S12.100A Unspecified displaced fracture of second cervical vertebra, initial encounter for closed fracture; S22.038A Other fracture of third thoracic vertebra, initial encounter for closed fracture; S22.048A Other fracture of fourth thoracic vertebra, initial encounter for closed fracture; S22.058A Other fracture of T5-T6 vertebra, initial encounter for closed fracture; F10.129 Alcohol abuse with intoxication, unspecified; M25.552 Pain in left hip; F17.210 Nicotine dependence, cigarettes, uncomplicated; Y90.8 Blood alcohol level of 240 mg/100 ml or more; W18.30XA Fall on same level, unspecified, initial encounter
CPT/HCPCS: 36415; 51702; 70450; 71045; 71260; 72125; 72128; 72131; 73552; 73562; 73590; 74177; 80053; 80306; 80320; 81000; 85025; 96361; 96374; 96375